=== PATIENT | male | born 1935 | race Caucasian/White ===

== ENCOUNTER → 2016-05-07 | Outpatient (CLI) | payer OTHER ==
[~2016-05-07] MED LIST: AMIO200T4 PO; ATOR10TA88 PO; CIPR1TAB11 PO; CLC/300 PO; CRD200 PO; GLC5 PO; LEVO75TA5 PO; LISI-790 PO; LSX40 PO; METF-383 PO; METO50TA7 PO; TPRSR/25 PO; XLTOPS OPB
--- NOTE | 2016-05-08 06:13 | PAP/PSG TECHNICIAN REPORT ---
[facility] Market Risk Analyst Polysomnogram Report Study name: None Report date: 05/08/2016 Study date: 05/07/2016 Referring Physician: Sandy Munoz M.D. Name: VANDANA DOMINGUEZ Interpreting Physician: Rubén Munoz M.D. Date of : 1935 Market Risk Analyst: Marti Kraft [facility]. Sex: Male Age: 80 StudyType: PSG Weight: 286 lbs Height: 80 years, Height 5' 8" Neck Circum:18.75 inches BMI: 43.48 Medications: Vitamins, Levoxyl 25 mcg, Lasix 20 mg, Amlodarone 200 mg, Metoprolol 50 MG, Lisinopril 5 mg, Metformin 850 mg, Lipitor 10 mg Patient History 80 yr. old male here for a possible split night sleep study with ETC02. Patient complains of EDS, snoring and witnessed apneas. Patients Holland sleepiness scale score is 14/24. Parameters Monitored NPSG: E1-M2, E2-M1, Fp1-M2, Fp2-M1, F3-M2, F4-M2, F4-M1, C3-M2, C4-M2, C4-M1, O1-M2, O2-M2, O2-M1, T3-M2, T4-M1, P3-M2, P4-M1, CHIN1, CHIN2, HR, EKG, Legs, PFLOW, SNOR, FLOW, CFLOW, Tidal Volume, THOR, ABDO, SpO2, PLTH, CPRESS, ETCO2 Wave, ETCO2, pH Sleep Architecture Sleep Stages Time at Lights Off 10:45:46 PM STAGES Time (min.) TST (%) Time at Lights On 4:50:46 AM Wake 168.5 -- Total Recording Time (TRT) 364.50 min. N1 57.0 29 Total Sleep Period (TSP) 299.5 min. N2 134.5 69 Total Sleep Time (TST) 196.0min. N3 0.0 0 Awake Time 168.5 min. REM 4.5 2 Wake after Sleep Onset 150.5 min. Sleep Efficiency (SE) 54 % Sleep Onset Latency (ALFONSO) 18.5 min. Number of Stage 1 Shifts None Awakenings 41 Stage Changes 153 Number of REM periods 1 REM 4.5 2 REM Latency 52.0 min. NREM 191.5 98 Body Position Analysis Supine Right Left Side Prone Vertical Total Sleep Time (min.) 363.0 0.0 0.0 0.00 0.0 1.5 Total Sleep Time (%) 100% 0% 0% 0 0% N/A% Total Sleep Time REM (min.) 4.5 0.0 0.0 None 0.0 0.0 Total Sleep Time NREM (min.) 191.5 0.0 0.0 None 0.0 0.0 Intermittent Wake (min.) 167.0 0.0 0.0 None 0.0 1.5 Total Sleep Period (%) 100% None None None None None Arousals Myoclonus (PLM) * Events Count Index Events Count Index Spontaneous 8 2 Events Awake (PLMW) 72 25.6 Respiratory 28 11.6 Events Asleep w/ Arousal (PLMA) 1 0.3 PLM 1 0 Events Asleep w/o Arousal (PLMS) 54 16.5 Snoring 2 1 Total Asleep 55 16.8 Total 39 12 Total 127 21 Respiratory Analysis * CA OA MA CH H RERA Total Count 1 75 40 0 74 0 190 Index 0.3 23.0 12.2 0 22.7 0 58.2 Mean Duration 34.3 29.3 34.2 0.00 28.7 0.0 30.1 Longest Duration 34.3 53.7 50.2 0.00 50.2 0.0 54.1 Respiratory Event Summary Total Supine ~Supine Right Left Prone REM NREM Apneas Count 116 116 N/A N/A N/A N/A 3 113 Index 35.5 36 N/A N/A N/A N/A 40 35 Hypopneas (4% Desat) Count 74 74 N/A N/A N/A N/A 0 74 Index 22.7 22.7 N/A N/A N/A N/A 0.0 23.2 Apneas & All Hypopneas Count 190 190 N/A N/A N/A N/A 3 187 Index 58.2 58 N/A N/A N/A N/A 40.0 58.6 Respiratory Events (Us Administrative Law Judge+All Hyp+RERA) Count 190 190 N/A N/A N/A N/A 3 187 Index 58.2 58 N/A N/A N/A N/A 40.0 58.6 Respiratory Related Arousal Count 28 190 N/A N/A N/A N/A 0 38 Index 11.6 12 N/A N/A N/A N/A 0 12 Snoring Analysis Supine Right Left Prone REM NREM Total Snore duration 1.5 min Snores count 65 N/A N/A N/A 4 61 65 Snore mean duration 1.4 Sec Snores index 20 N/A N/A N/A 53.3 19.1 19.9 TST with snoring (%) 0.8% SpO2 Analysis Total REM NREM Awake <50% 0.0 min. 0.0 min. 0.0 min. 0.0 min. 51 - 60% 0.0 min. 0.0 min. 0.0 min. 0.0 min. 61 - 70% 0.0 min. 0.0 min. 0.0 min. 0.0 min. 71 - 80% 1.1 min. 0.0 min. 0.4 min. 0.7 min. 81 - 90% 79.6 min. 2.4 min. 54.9 min. 22.3 min. 91 - 100% 204.1 min. 0.8 min. 94.2 min. 109.1 min. Average 92 89 91 93 Minimum SpO2 75 86 77 75 Desaturation Event Index 21.1 26.7 25.7 16.0 # Desat. Events below 89% 72 2 51 19 Time(%) with Saturation below 89% 13.6 0.6 9.6 3.5 Time(min.) with Saturation below 89% 38.8 1.6 27.4 9.9 Heart Rate Analysis End Tidal CO2 Analysis Min (bpm) Max (bpm) Average (bpm) TSP (mins) % of TSP Awake 37 161 64 Above 55 mmHg 0.0 0.0 NREM 33 127 61 50-55 mmHg 0.9 0.5 REM 59 63 60 45-50 mmHg 2.7 1.4 Overall 33 127 61 40-45 mmHg 12.8 6.6 35-40 mmHg 27.2 13.9 30-35 mmHg 58.1 29.6 Average ETCO2 0.1 Supplemental O2 Values Minimum O2 level: None Value Start Time End Time Market Risk Analyst Comments Mr. Dominguez qualified for a split night sleep study but refused CPAP. He said he could not do it. Both nasal and full face masks were tried. At 4:45 am, Mr. Dominguez stated that he needed to sit up to be able to breathe, and this is the time he moves to his recliner at home to breathe better. Mr. Dominguez slept in the supine position. Cardiac arrhythmias noted all night. No bruxism noted. Snoring was noted and scored as a 2 on a scale of 0 through 5. (0=no snoring, 5=snoring loud enough to be heard through a closed door or down the pimentel way) Mr. Dominguez awoke to use the restroom once during the night. Mr. Dominguez stated, that was a normal night. The final report will be interpreted and signed by a sleep physician. The completed physician report will then be placed in the patient medical record. Therapy (cm H2O) 0 TIB (min.) 364.5 TST (min.) 196.0 Sleep Onset (min.) 18.5 REM Onset From Sleep (min.) 52.0 Sleep Efficiency % 54 Wakefulness (%) 46 Wakefulness (min.) 168.5 NREM 1 (%) 29 NREM 1 (min.) 57.0 NREM 2 (%) 69 NREM 2 (min.) 134.5 NREM 3 (%) 0 NREM 3 (min.) 0.0 REM (%) 2 REM (min.) 4.5 # Arousals 39 Arousal Index 12 # Snore 65 Snore Index 19.9 AHI 58.2 AHI Supine 58 AHI Non-Supine N/A NREM AHI 58.6 REM AHI 40.0 RDI 58.2 # Obstructive Apnea 75 # Central Apnea 1 # Mixed Apnea 40 # Hypopneas 74 RERAs 0 Total Respiratory Events 230 Time Below SpO2 89% (min.) 29.0 Mean NREM SpO2 (%) 91 Mean REM SpO2 (%) 89 Mean Sleep SpO2 (%) 91 Min NREM SpO2 (%) 77 Min REM SpO2 (%) 86 Position Supine (min.) 363.0 Position Non-supine (min.) 0.0 LM Index Sleep 16.8 LM Index NREM 16.9 LM Index REM 13.3 Mean Heart Rate (bpm) 61 Min Heart Rate (bpm) 33
--- NOTE | 2016-05-11 00:04 | POLYSOMNOGRAPH REPORT ---
REFERRING PERSON: Dr. Viktoria Munoz. MILL OPERATOR HEAD: Marti Kraft. Mr. Way is an 80-year-old male sent for a possible split night sleep study. He complains of excessive daytime sleepiness, snoring, and witnessed apneas. His Maurice Sleepiness Scale score on the evening of this study is 14. BMI 43.48. Following the technical and digital specifications of the [place] [employer] (AASM) a standard diagnostic polysomnogram was performed monitoring EEG, EOG, EMG (chin and leg deviations), oxygen saturation, body position, digital video, respiratory effort and airflow. The sleep Stage and event scoring was based on the AASM Manual for the Scoring of Sleep and Associated Events 2007 edition. Apneas are defined as a drop in the peak thermal sensor excursion by >90% of baseline for at least 10 seconds. Hypopneas were scored using the 4% oxygen desaturation rule (4A-Medicare) and a decrease in the nasal pressure excursions by >30% of baseline for at least 10 seconds. Respiratory effort-related arousal (RERA's) is defined as a sequence of breaths lasting at least 10 seconds characterized by increasing respiratory effort or flattening of the nasal pressure waveform leading to an arousal from sleep when the sequence of breaths does not meet criteria for an apnea or hypopnea. Apnea Hypopnea index (AHI) is defined as the number of apneas and hypopneas occurring in an hour of sleep. Respiratory disturbance index (RDI) is defined as the number of apneas, hypopneas, and RERA's occurring in an hour of sleep. Mr. Carreras total sleep period time was 299.5 minutes. Total sleep time was 196 minutes. Sleep efficiency was only 54%. Latency to sleep onset was 18.5 minutes with wake after sleep onset of 150.5 minutes. Total non-REM sleep time was 191.5 minutes. He spent 29% of the sleep time in N1 sleep, 69% in N2 sleep and no time in N3 sleep. This is abnormal non-REM sleep architecture with a propensity for superficial sleep. REM latency was short at 52 minutes. Total REM sleep time was 4.5 minutes or 2% of total sleep time. There were 39 cortical arousals from sleep. Eight of these arousals were spontaneous, 28 were due to respiratory events, 1 due to periodic limb movements of sleep and 2 were due to snoring. There were 55 periodic limb movements noted on this test. Limb movement index was 16.8. Limb movement with arousal index was 0.3. On this sleep study, Mr. Way had 1 central, 75 obstructive and 40 mixed apneas. Additionally, there were 74 hypopneas. Apnea-hypopnea index was 58.2, consistent with severe sleep apnea. This patient was not split due to his sleep efficiency and wake after sleep onset. There were 65 snoring events recorded. Total sleep time with snoring was 0.8%. Mean saturation was 92% with desaturations to 75% during sleep. Saturations were less than 89% for 38.8 minutes of sleep time. This patient appeared to be in trigeminy during this study. Heart rates ranged from a low of 33 beats per minute to a high of 127 beats per minute. Although end-tidal CO2 was ordered, this data was incomplete. Per the technologist's note, he actually was tried on CPAP therapy; however, he stated he could not do it. Both nasal and full facemask were offered. IMPRESSION AND PLAN: An 80-year-old male with evidence of severe sleep apnea and significant nocturnal hypoxemia on this sleep study. Additionally, his heart rate monitoring and telemetry suggested trigeminy. 1. This patient would likely benefit from positive airway pressure therapy. He may benefit from a Pap nap in order to acclimate to therapy and then return to sleep after a full night titration. This will likely improve his hypoxemia as well as his apnea. 2. Should this patient be unwilling or unable to tolerate CPAP therapy, I would recommend he be started on oxygen therapy and then referred to ear, nose and throat or oral surgery/dental medicine to discuss alternative treatments for sleep disordered breathing.
== END | disposition home or self-care (01) ==
LOC: C.NEUR 20:00
PROVIDERS: ATTEND Family Medicine
DX: R06.83 Snoring (principal); G47.30 Sleep apnea, unspecified; E66.01 Morbid (severe) obesity due to excess calories; R09.02 Hypoxemia

== ENCOUNTER 2016-11-20 14:52 | Emergency (ER) | payer OTHER ==
[~2016-11-20] VITALS: Ht 177.8 cm; Wt 128.0 kg
[~2016-11-20 14:52] MED LIST changes: -AMIO200T4 PO; -CIPR1TAB11 PO; -CLC/300 PO; -GLC5 PO; -LEVO75TA5 PO; -LSX40 PO; -METO50TA7 PO; -TPRSR/25 PO
[2016-11-20 15:02] VITALS: TEMP 36.9; Ht 177.8 cm; Wt 128.0 kg
--- NOTE | 2016-11-20 15:23 | EMERGENCY ROOM VISIT NOTE ---
History Report prepared by Mustapha: Juan Carlos Castano Under the Supervision of: Dr. Valerio Gonzalez M.D. First contact with patient: 15:05 Chief Complaint: ABNORMAL LABS Stated Complaint: SENT BY DR OFFICE, ABNORMAL LABS, HIGH POTASSIUM History of Present Illness The patient is a 81 year old male who presents to the Emergency Room because of abnormal labs that were taken this morning. The patient states that he had high potassium this morning. The patient denies any chest pain or shortness of breath. Additionally, the patient states that his legs are always wrapped, and he has been urinating fine. The patient additionally just changed his medications from metformin to glipizide. Source of History: patient Onset: this morning Position: other (global) Quality: other (abnormal labs) Associated Symptoms: No chest pain, No SOB Review of Systems See HPI for pertinent positives & negatives. A total of 10 systems reviewed and were otherwise negative. Past Medical & Surgical Medical Problems: (1) Benign hypertension (2) Diabetes mellitus (3) Hypercholesterolemia (4) Knee pain (5) Ventricular tachycardia seen on satellite project site monitor Family History Diabetes mellitus FHx: cancer Social History Smoking Status: Never Smoker Alcohol Use: none Drug Use: none Marital Status: Housing Status: lives with family Occupation Status: retired Current/Historical Medications Scheduled Amiodarone Hcl (Cordarone), 200 MG PO DAILY Atorvastatin (Lipitor), 10 MG PO DAILY Furosemide (Furosemide), 40 MG PO MWF Glipizide (Glipizide), 5 MG PO DAILY Latanoprost (Latanoprost), 1 DROP OPB HS Levothyroxine Sodium (Levothyroxine Sodium), 75 MCG PO QAM Lisinopril (Zestril), 5 MG PO DAILY Metoprolol Succinate (Metoprolol Succinate ER), 25 MG PO DAILY Allergies Coded Allergies: Azithromycin (Unverified Allergy, Unknown, LIGHTHEADED, 11/20/16) IS UNSURE IF THIS IS THE ALLERGY FOR SURE. Physical Exam Vital Signs Date Time Temp Pulse Resp B/P (MAP) Pulse Ox O2 Delivery O2 Flow Rate FiO2 11/20/16 16:58 72 20 157/83 95 Room Air 11/20/16 15:02 36.9 73 22 193/85 92 Room Air Physical Exam GENERAL: Patient is well appearing and in no acute distress. Overweight. HEENT: No acute trauma, normocephalic atraumatic, mucous membranes moist, no nasal congestion, no scleral icterus. NECK: No stridor, no adenopathy, no meningismus, trachea is midline. LUNGS: No dyspnea. Clear to auscultation and equal bilaterally. No wheeze, no rhonchi. HEART: Regular rate and rhythm. No murmurs, rubs, gallops appreciated. ABDOMEN: Soft, nontender, bowel sounds positive, no masses appreciated, no peritonitis. BACK: No midline tenderness, no CVA tenderness EXTREMITIES: Wrappings on bilateral legs due to chronic edema. Normal motion all extremities and no cyanosis. NEUROLOGIC: Alert and oriented, no acute motor or sensory deficits, no focal weakness, cranial nerves grossly intact. SKIN: No rash, no jaundice, no diaphoresis. Medical Decision & Procedures Laboratory Results 11/20/16 15:20 Red Blood Count 4.18, Mean Corpuscular Volume 87.1, Mean Corpuscular Hemoglobin 28.5, Mean Corpuscular Hemoglobin Concent 32.7, Mean Platelet Volume 10.0, Neutrophils (%) (Auto) 56.0, Lymphocytes (%) (Auto) 31.0, Monocytes (%) (Auto) 8.2, Eosinophils (%) (Auto) 4.4, Basophils (%) (Auto) 0.2, Neutrophils # (Auto) 3.55, Lymphocytes # (Auto) 1.96, Monocytes # (Auto) 0.52, Eosinophils # (Auto) 0.28, Basophils # (Auto) 0.01 11/20/16 15:20 Test 11/20/16 15:20 White Blood Count 6.33 K/uL (4.8-10.8) Red Blood Count 4.18 M/uL (4.7-6.1) Hemoglobin 11.9 g/dL (14.0-18.0) Hematocrit 36.4 % (42-52) Mean Corpuscular Volume 87.1 fL (80-100) Mean Corpuscular Hemoglobin 28.5 pg (25-34) Mean Corpuscular Hemoglobin Concent 32.7 g/dl (32-36) Platelet Count 182 K/uL (130-400) Mean Platelet Volume 10.0 fL (7.4-10.4) Neutrophils (%) (Auto) 56.0 % Lymphocytes (%) (Auto) 31.0 % Monocytes (%) (Auto) 8.2 % Eosinophils (%) (Auto) 4.4 % Basophils (%) (Auto) 0.2 % Neutrophils # (Auto) 3.55 K/uL (1.4-6.5) Lymphocytes # (Auto) 1.96 K/uL (1.2-3.4) Monocytes # (Auto) 0.52 K/uL (0.11-0.59) Eosinophils # (Auto) 0.28 K/uL (0-0.5) Basophils # (Auto) 0.01 K/uL (0-0.2) RDW Standard Deviation 47.1 fL (36.4-46.3) RDW Coefficient of Variation 14.7 % (11.5-14.5) Immature Granulocyte % (Auto) 0.2 % Immature Granulocyte # (Auto) 0.01 K/uL (0.00-0.02) Anion Gap 6.0 mmol/L (3-11) Est Creatinine Clear Calc Drug Dose 32.4 ml/min Estimated GFR () 28.3 Estimated GFR (Non- 24.4 BUN/Creatinine Ratio 14.9 (10-20) Calcium Level 8.5 mg/dl (8.5-10.1) Magnesium Level 2.4 mg/dl (1.8-2.4) Laboratory results as reviewed by me. ED Course 1505: The patient was evaluated in room B5. A complete history and physical exam was performed. 1556: I reevaluated the patient, and he feels fine. The patient is aware that his kidney function is poor, and he is going to follow up with oncology next month. His potassium was 5.6 as an outpatient yesterday, and the creatinine was 2.3, but 4.7 today. His baseline creatinine is 2 and his potassium is 4.7 1638: I reassessed the patient, and he states that he still wants to go home. The patient understands the instructions, and he will be discharged home. Medical Decision 81 yr old male sent over from clinic for evaluation of hyperK. Repeat labs here reveal K 4.7. He does appear to have gradually worsening renal function. He is on Glipizide and Lisinopril thus I stressed importance of PCP follow up. he states he feels fine and that he is going home. No evidence of need for admission, obs, dialysis, acute change in meds at this time as he will follow up with PCP in next few days. I discussed case with nurse from PCP office and requested PCP review findings and his medications, along with his hypertension. I did discuss case with Dr Hollins of Nephro who agree with continued outpatient monitoring and notes pt with nephro appoint towards end Nov which seems reasonable. Pt aware RTED at any time if worsening or other concerns. Medication Reconcilliation Current Medication List: was personally reviewed by me Blood Pressure Screening Patient's blood pressure: Elevated blood pressure Blood pressure disposition: Referred to PCP Impression Primary Impression: Acute on chronic renal insufficiency Scribe Attestation The scribe's documentation has been prepared under my direction and personally reviewed by me in its entirety. I confirm that the note above accurately reflects all work, treatment, procedures, and medical decision making performed by me. Departure Information Dispostion Home / Self-Care Referrals Yarelis Hinds D.O. (PCP) Forms HOME CARE DOCUMENTATION FORM, IMPORTANT VISIT INFORMATION, WORK / SCHOOL INSTRUCTIONS Patient Instructions My [facility] Additional Instructions Please follow up with your Primary Provider early next week to discuss your elevation in kidney function, your hypertension and the fact you are on several medications that can cause issues in setting of renal problems. Return immediately if worsening of symptoms or other concerns. We are always here to help.
[2016-11-20] MEDS ORDERED: TPRSR/25 PO (15:25)
[2016-11-20] MEDS ORDERED: AMIO200T4 PO (15:26)
[2016-11-20] MEDS ORDERED: LEVO75TA5 PO (15:26)
[2016-11-20] MEDS ORDERED: GLC5 PO (15:26)
[2016-11-20] MEDS ORDERED: LSX40 PO (15:27)
[2016-11-20 15:30] LABS: BASO % 0.2 %; BASO ABS # 0.01 K/uL (0-0.2); COMPLETE YES; EOS % 4.4 %; HEMATOCRIT 36.4 % (42-52); IG% 0.2 %; LYMPH ABS # 1.96 K/uL (1.2-3.4); MEAN CELL VOLUME 87.1 fL (80-100); MEAN CORPUSCULAR HEMOGLOBIN 28.5 pg (25-34); MEAN CORPUSCULAR HGB CONC 32.7 g/dl (32-36); MONO % 8.2 %; PLATELET COUNT 182 K/uL (130-400); RED BLOOD COUNT 4.18 M/uL (4.7-6.1); WHITE BLOOD COUNT 6.33 K/uL (4.8-10.8)
[2016-11-20 15:46] LABS: BUN/CREATININE RATIO 14.9 (10-20); CALCIUM 8.5 mg/dl (8.5-10.1); CREATININE 2.4 mg/dl (0.60-1.40); MAGNESIUM 2.4 mg/dl (1.8-2.4); POTASSIUM 4.7 mmol/L (3.5-5.1)
[2016-11-20 16:58] VITALS: BP 157/83; PULSE 72; O2SAT 95
[2016-12-25] MEDS ORDERED: CLC/300 PO (10:19)
[2017-01-11] MEDS ORDERED: CIPR1TAB11 PO (13:50)
== END 2016-11-20 17:11 | disposition home or self-care (01) ==
LOC: C.EDB 14:54
DX: N18.9 Chronic kidney disease, unspecified (principal); R79.9 Abnormal finding of blood chemistry, unspecified; I10 Essential (primary) hypertension; E78.00 Pure hypercholesterolemia, unspecified; Z83.3 Family history of diabetes mellitus

== ENCOUNTER 2017-03-08 11:19 | Inpatient (IN) | payer OTHER ==
[~2017-03-08] VITALS: Ht 182.9 cm; Wt 125.0 kg
[~2017-03-08 11:19] MED LIST changes: +AMIO200T4 PO; +ATOR10TA82 PO; -ATOR10TA88 PO; -CRD200 PO; +LEVO75TA5 PO; -LISI-790 PO; +LSX40 PO; -METF-383 PO; +TPRSR/25 PO
[2017-03-08] MEDS ORDERED: CHOL2000 PO (11:42)
[2017-03-08] MEDS ORDERED: CLINDAMYCIN 600 MG/54 ML D5W IV ONE (12:15)
--- NOTE | 2017-03-08 12:27 | EMERGENCY ROOM VISIT NOTE ---
History Report prepared by Mustapha: Vineet Kaufman Under the Supervision of: Dr. Rafat Suarez M.D. First contact with patient: 12:02 Chief Complaint: WOUND INFECTION Stated Complaint: OPEN SORES ON LEGS Nursing Triage Summary: Pt presents with c/o cellulitis and lymphedema to right upper leg. Pt states finished oral abx with no relief. Pt is diabetic. Appt at the wound care clinic on Wed. History of Present Illness The patient is a 81 year old male who presents to the Emergency Room with complaints of a worsening infection to his right oneill that began two days ago. He is following up with the Wound Clinic and finished a course of antibiotics a couple of days ago. He saw the Wound Clinic 6 days ago, saying that his wound had healed over and looked well. He then began using compression devices on his legs the next day. His leg began to look infected again two days ago. He denies any blood thinners. He notes that this morning, the patient was in the shower and noticed that both of his legs turned purple. He denies any fevers, cough, congestion, chills, chest pain, shortness of breath, abdominal pain, nausea, vomiting, or diarrhea. Source of History: patient Onset: two days ago Position: leg Symptom Intensity: moderate Quality: other (Possible infection) Timing: worsening Associated Symptoms: No fevers, No chills, No cough, No chest pain, No SOB, No nausea, No vomiting, No abdominal pain, No diarrhea Note: He notes that his legs turned purple while in the shower this morning. Review of Systems See HPI for pertinent positives and negatives. A total of ten systems were reviewed and were otherwise negative. 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 Surgical Problems: (1) History of hip surgery Family History Diabetes mellitus FHx: cancer Social History Smoking Status: Former Smoker Alcohol Use: none Drug Use: none Marital Status: Housing Status: lives with family Occupation Status: retired Current/Historical Medications Scheduled Amiodarone Hcl (Cordarone), 200 MG PO DAILY Atorvastatin (Lipitor), 10 MG PO DAILY Cholecalciferol (Vitamin D3), 2,000 INTER.UNIT PO DAILY Furosemide (Furosemide), 40 MG PO DAILY Latanoprost (Xalatan 0.005% Oph Carine), 1 DROPS OPB HS Levothyroxine Sodium (Levothyroxine Sodium), 75 MCG PO QAM Metoprolol Succinate (Metoprolol Succinate ER), 50 MG PO DAILY Allergies Coded Allergies: Azithromycin (Unverified Allergy, Unknown, LIGHTHEADED, 03/08/17) IS UNSURE IF THIS IS THE ALLERGY FOR SURE. Physical Exam Vital Signs Date Time Temp Pulse Resp B/P (MAP) Pulse Ox O2 Delivery O2 Flow Rate FiO2 03/08/17 16:58 54 184/62 95 Room Air 03/08/17 15:12 55 140/89 97 Room Air 03/08/17 13:20 57 20 149/70 97 Room Air 03/08/17 11:24 36.8 60 18 147/68 95 Room Air Physical Exam GENERAL: Awake, alert, well-appearing, in no distress HENT: Normocephalic, atraumatic. Oropharynx unremarkable. EYES: Normal conjunctiva. Sclera non-icteric. NECK: Supple. No nuchal rigidity. FROM. No JVD. RESPIRATORY: Clear to auscultation. CARDIAC: Regular rate, normal rhythm. Extremities warm and well perfused. Pulses equal. ABDOMEN: Soft, non-distended. No tenderness to palpation. No rebound or guarding. No masses. RECTAL: Deferred. MUSCULOSKELETAL: Chest examination reveals no tenderness. The back is symmetrical on inspection without obvious abnormality. There is no CVA tenderness to palpation. No joint edema. LOWER EXTREMITIES: There is an erythematous and excoriated area within 10 cm's to the right anterior lower leg with isolated vesicles. The left anterior lower leg has erythematous patches with a smaller area of excoriation without blistering. No warmth or crepitus. Distally, the patient's feet are warm with diminished pulses. NEURO: Normal sensorium. No sensory or motor deficits noted. SKIN: No rash or jaundice noted. Medical Decision & Procedures ER Provider Diagnostic Interpretation: Radiology results as stated below per my review and radiologist interpretation: VENOUS DOPPLER LWR EXT BILA CLINICAL HISTORY: 81 years-old Male presenting with transient BLE cyanosis. TECHNIQUE: Real-time grayscale and color and spectral Doppler ultrasound imaging of the veins of the bilateral lower extremities was performed. Compression and augmentation were also utilized. COMPARISON: None. FINDINGS: Right: Common femoral vein: Patent. Femoral vein: Patent. Greater saphenous vein: Patent. Popliteal vein: Patent. Calf veins: Limited visualization. Left: Common femoral vein: Patent. Femoral vein: Patent. Greater saphenous vein: Patent. Popliteal vein: Patent. Calf veins: Limited visualization. Other: Left popliteal cysts noted. IMPRESSION: No evidence of deep venous thrombosis. Electronically signed by: Eliecer Andre M.D. 03/08/2017 3:20 PM Dictated Date/Time: 03/08/2017 3:18 PMn R TIBIA/FIBULA 2 VIEWS ROUTINE CLINICAL HISTORY: Cellulitis, diabetic COMPARISON: None. DISCUSSION: There are mild osteoarthritic changes present within the knee. No acute fractures are visualized. There are no erosive or destructive changes. IMPRESSION: 1. No evidence of fracture 2. No evidence of osteomyelitis. Electronically signed by: Jose Triplett M.D. 03/08/2017 1:21 PM Dictated Date/Time: 03/08/2017 1:20 PM ART DOP LOWER EXT BILAT HISTORY: 81 years-old Male transient BLE cyanosis acute cyanosis of the bilateral lower extremities COMPARISON: None available TECHNIQUE: Multiple real-time sonographic images of the bilateral lower extremity arterial structures were obtained assessing grayscale appearance, color and spectral flow. Digit waveforms were also obtained. ABIs were not obtained secondary to open wounds. FINDINGS: RIGHT: Triphasic waveforms are noted within the common femoral, profunda femoris, superficial femoral and popliteal arteries. Blunted biphasic waveforms of the peroneal, anterior tibial and dorsalis pedis arteries. Atherosclerosis noted. Elevated peak systolic velocity of 440.6 cm/s noted within the posterior tibial artery with triphasic waveforms suggesting high-grade stenosis. LEFT: Triphasic waveforms are noted within the common femoral, profunda femoris, and superficial femoral arteries. Blunted biphasic waveforms are seen within the popliteal artery. Blunted monophasic waveforms of the posterior tibial, anterior tibial and peroneal arteries. Elevated peak systolic velocity 152 cm/s noted within the peroneal artery. Reversed flow within the dorsalis pedis artery with peak systolic velocity of 20 cm/s. IMPRESSION: 1. Elevated peak systolic velocity of 440.6 cm/s within the right posterior tibial artery suggests high-grade stenosis. 2. Mildly elevated peak systolic velocity of the left peroneal artery also suggests stenosis. 3. Reversed flow within the left dorsalis pedis artery suggests high-grade stenosis. 4. Waveforms above the level of the knees appear to be within normal limits as above. The above report was generated using voice recognition software. It may contain grammatical, syntax or spelling errors. Electronically signed by: Da Santacruz M.D. 03/08/2017 3:29 PM Dictated Date/Time: 03/08/2017 3:24 PM Laboratory Results 03/08/17 12:45 Red Blood Count 4.22, Mean Corpuscular Volume 88.6, Mean Corpuscular Hemoglobin 27.7, Mean Corpuscular Hemoglobin Concent 31.3, Mean Platelet Volume 10.8, Neutrophils (%) (Auto) 63.4, Lymphocytes (%) (Auto) 20.9, Monocytes (%) (Auto) 8.8, Eosinophils (%) (Auto) 6.8, Basophils (%) (Auto) 0.1, Neutrophils # (Auto) 4.66, Lymphocytes # (Auto) 1.54, Monocytes # (Auto) 0.65, Eosinophils # (Auto) 0.50, Basophils # (Auto) 0.01 03/08/17 12:45 Test 03/08/17 12:45 White Blood Count 7.36 K/uL (4.8-10.8) Red Blood Count 4.22 M/uL (4.7-6.1) Hemoglobin 11.7 g/dL (14.0-18.0) Hematocrit 37.4 % (42-52) Mean Corpuscular Volume 88.6 fL (80-100) Mean Corpuscular Hemoglobin 27.7 pg (25-34) Mean Corpuscular Hemoglobin Concent 31.3 g/dl (32-36) Platelet Count 173 K/uL (130-400) Mean Platelet Volume 10.8 fL (7.4-10.4) Neutrophils (%) (Auto) 63.4 % Lymphocytes (%) (Auto) 20.9 % Monocytes (%) (Auto) 8.8 % Eosinophils (%) (Auto) 6.8 % Basophils (%) (Auto) 0.1 % Neutrophils # (Auto) 4.66 K/uL (1.4-6.5) Lymphocytes # (Auto) 1.54 K/uL (1.2-3.4) Monocytes # (Auto) 0.65 K/uL (0.11-0.59) Eosinophils # (Auto) 0.50 K/uL (0-0.5) Basophils # (Auto) 0.01 K/uL (0-0.2) RDW Standard Deviation 45.0 fL (36.4-46.3) RDW Coefficient of Variation 14.0 % (11.5-14.5) Immature Granulocyte % (Auto) 0.0 % Immature Granulocyte # (Auto) 0.00 K/uL (0.00-0.02) Anion Gap 10.0 mmol/L (3-11) Est Creatinine Clear Calc Drug Dose 32.6 ml/min Estimated GFR () 27.8 Estimated GFR (Non- 24.0 BUN/Creatinine Ratio 16.9 (10-20) Calcium Level 8.7 mg/dl (8.5-10.1) Thyroid Stimulating Hormone (TSH) 2.330 uIu/ml (0.300-4.500) Laboratory results reviewed by me Medications Administered Medications (Trade) Dose Ordered Sig/Suraj Route Start Time Stop Time Status Last Admin Dose Admin Clindamycin Phosphate (Cleocin 600mg/ 54ml D5W) 600 mg ONE ONCE IV 03/08/17 12:15 03/08/17 12:16 DC 03/08/17 13:26 600 MG ED Course 1202: The patient was evaluated in room A10. A complete history and physical exam was performed. 1215: Ordered Clindamycin Phosphate 600 mg IV 1637: Upon reexamination, the patient was resting. I discussed the test results and treatment plan with him. I spoke with Araceli Cisneros PA-C of [employer]. The patient will be evaluated by her for further management. Medical Decision I reviewed the patient's past medical history, medications, and the nursing notes as described above. Differential diagnosis includes but is not limited to: cellulitis, venous insufficiency, arterial insufficiency, and osteomyelitis. The patient is an 81-year-old gentleman with a past medical history of diabetes as well as recurrent lower extremity cellulitis who presents emergency Department with return of cellulitis despite recent completion of outpatient antibiotics 2 days prior to arrival per history of present illness. Additionally the patient reports a transient episode of cyanosis underlying his bilateral lower extremity cellulitis. Exam patient has scaly erythematous patches on his anterior lower legs with right lower extremity worse and with isolated vesicles. No crepitus or induration. Patient had negative venous duplex. However did have severe arterial insufficiency/stenosis. Patient does have a left dopplerable monophasic DP, and right monophasic PT. Otherwise, other pedal pulses not dopplerable. Patient's feet are chronically cool but not cold and this is unchanged per patient. Moreover, patient denies any symptoms of claudication such as resting or exertional leg paing. His cap refill is slightly delayed but does perfuse. Given patient's arterial insufficiency likely precipitating his recurrent cellulitis will admit the patient for IV antibiotics and likely vascular consultation. Will defer question of possible anticoagulation to admitting team upon vascular consult given patient does have distal perfusion at this time. Unable to obtain CTA at this time given the patient's CKD. Case was discussed with Ramya Bhakta PA-C who will admit the patient for further management. Medication Reconcilliation Current Medication List: was personally reviewed by me Blood Pressure Screening Patient's blood pressure: Elevated blood pressure Will be addressed as an inpatient. Consults Time Called: 1635 Consulting Physician: Araceli Cisneros PA-C - [facility] Hospitalist Returned Call: [phone] I discussed the patient with her - She will evaluate the patient for further treatment. Impression Primary Impression: Cellulitis Additional Impression: Arterial insufficiency of lower extremity Scribe Attestation The scribe's documentation has been prepared under my direction and personally reviewed by me in its entirety. I confirm that the note above accurately reflects all work, treatment, procedures, and medical decision making performed by me. Departure Information Dispostion Being Evaluated By Hospitalist Referrals Yarelis Hinds D.O. (PCP) Patient Instructions My [facility] Problem Qualifiers Primary Impression: Cellulitis Site of cellulitis: extremity Site of cellulitis of extremity: lower extremity Laterality: right Qualified Codes: L03.115 - Cellulitis of right lower limb
--- NOTE | 2017-03-08 13:22 | DIAGNOSTIC IMAGING REPORT ---
R TIBIA/FIBULA 2 VIEWS ROUTINE CLINICAL HISTORY: Cellulitis, diabetic COMPARISON: None. DISCUSSION: There are mild osteoarthritic changes present within the knee. No acute fractures are visualized. There are no erosive or destructive changes. IMPRESSION: 1. No evidence of fracture 2. No evidence of osteomyelitis. Electronically signed by: Jose Triplett M.D. 03/08/2017 1:21 PM Dictated Date/Time: 03/08/2017 1:20 PM
[2017-03-08 13:25] LABS: BASO % 0.1 %; BASO ABS # 0.01 K/uL (0-0.2); COMPLETE YES; EOS % 6.8 %; HEMATOCRIT 37.4 % (42-52); LYMPH % 20.9 %; LYMPH ABS # 1.54 K/uL (1.2-3.4); MEAN CELL VOLUME 88.6 fL (80-100); MEAN CORPUSCULAR HEMOGLOBIN 27.7 pg (25-34); MEAN CORPUSCULAR HGB CONC 31.3 g/dl (32-36); MEAN PLATELET VOLUME 10.8 fL (7.4-10.4); MONO % 8.8 %; NEUT % 63.4 %; PLATELET COUNT 173 K/uL (130-400); RED BLOOD COUNT 4.22 M/uL (4.7-6.1); WHITE BLOOD COUNT 7.36 K/uL (4.8-10.8)
[2017-03-08 13:38] LABS: BUN/CREATININE RATIO 16.9 (10-20); CALCIUM 8.7 mg/dl (8.5-10.1); CREATININE 2.43 mg/dl (0.60-1.40); POTASSIUM 4.3 mmol/L (3.5-5.1)
--- NOTE | 2017-03-08 15:21 | DIAGNOSTIC IMAGING REPORT ---
VENOUS DOPPLER LWR EXT BILA CLINICAL HISTORY: 81 years-old Male presenting with transient BLE cyanosis. TECHNIQUE: Real-time grayscale and color and spectral Doppler ultrasound imaging of the veins of the bilateral lower extremities was performed. Compression and augmentation were also utilized. COMPARISON: None. FINDINGS: Right: Common femoral vein: Patent. Femoral vein: Patent. Greater saphenous vein: Patent. Popliteal vein: Patent. Calf veins: Limited visualization. Left: Common femoral vein: Patent. Femoral vein: Patent. Greater saphenous vein: Patent. Popliteal vein: Patent. Calf veins: Limited visualization. Other: Left popliteal cysts noted. IMPRESSION: No evidence of deep venous thrombosis. Electronically signed by: Eliecer Andre M.D. 03/08/2017 3:20 PM Dictated Date/Time: 03/08/2017 3:18 PMn
--- NOTE | 2017-03-08 15:31 | DIAGNOSTIC IMAGING REPORT ---
ART DOP LOWER EXT BILAT HISTORY: 81 years-old Male transient BLE cyanosis acute cyanosis of the bilateral lower extremities COMPARISON: None available TECHNIQUE: Multiple real-time sonographic images of the bilateral lower extremity arterial structures were obtained assessing grayscale appearance, color and spectral flow. Digit waveforms were also obtained. ABIs were not obtained secondary to open wounds. FINDINGS: RIGHT: Triphasic waveforms are noted within the common femoral, profunda femoris, superficial femoral and popliteal arteries. Blunted biphasic waveforms of the peroneal, anterior tibial and dorsalis pedis arteries. Atherosclerosis noted. Elevated peak systolic velocity of 440.6 cm/s noted within the posterior tibial artery with triphasic waveforms suggesting high-grade stenosis. LEFT: Triphasic waveforms are noted within the common femoral, profunda femoris, and superficial femoral arteries. Blunted biphasic waveforms are seen within the popliteal artery. Blunted monophasic waveforms of the posterior tibial, anterior tibial and peroneal arteries. Elevated peak systolic velocity 152 cm/s noted within the peroneal artery. Reversed flow within the dorsalis pedis artery with peak systolic velocity of 20 cm/s. IMPRESSION: 1. Elevated peak systolic velocity of 440.6 cm/s within the right posterior tibial artery suggests high-grade stenosis. 2. Mildly elevated peak systolic velocity of the left peroneal artery also suggests stenosis. 3. Reversed flow within the left dorsalis pedis artery suggests high-grade stenosis. 4. Waveforms above the level of the knees appear to be within normal limits as above. The above report was generated using voice recognition software. It may contain grammatical, syntax or spelling errors. Electronically signed by: Da Santacruz M.D. 03/08/2017 3:29 PM Dictated Date/Time: 03/08/2017 3:24 PM
[2017-03-08] MEDS ORDERED: ACETAMINOPHEN 325 MG TAB PO PRN (18:00)
[2017-03-08] MEDS ORDERED: ONDANSETRON INJ 2 MG/ML 2 ML VIAL IV PRN (18:00)
[2017-03-08] MEDS ORDERED: GLUCAGON FOR INJ 1 MG VIAL SQ PRN (18:15)
[2017-03-08] MEDS ORDERED: GLUCOSE 10 TABS/TUBE PO PRN (18:15)
[2017-03-08] MEDS ORDERED: GLUCOSE 40% GEL 15 GM TUBE PO PRN (18:15)
[2017-03-08] MEDS ORDERED: DEXTROSE 50% 50 ML SYR IV PRN (18:15)
[2017-03-08] MEDS ORDERED: LATA0.5S OPB (18:37)
--- NOTE | 2017-03-08 19:09 | History and Physical ---
History & Physical Date of Service Mar 08, 2017. History & Physical This is an 81 year old male with a PMH of ventricular ectopy, multiple PACs/ PVCs and a hx. of nonsustained V-tach, DM2, HTN, HLD, CKD stage IV, hypothyroidism - presents due to lower extremity wound - which has been present for about two years - he has been following with his PCP and wound care for bilateral lower extremity swelling and wounds. Has been intermittently on antibiotics for these two years. States that the wound has been getting worse, so he came in for evaluation. On arrival, venous and arterial dopplers were performed; no DVT found, but arterial stenosis found on the R LE. Denies all other symptoms. 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
[2017-03-08 20:10] VITALS: BP 199/79; PULSE 57; TEMP 36.8; O2SAT 94
[2017-03-08 20:12] VITALS: BP 180/87
[2017-03-08 20:16] VITALS: BMI 37.4
--- NOTE | 2017-03-08 20:59 | History and Physical ---
History & Physical Date & Time of Service: Mar 08, 2017 at 17:48 Chief Complaint: Open Sores On Legs Primary Care Physician: Yarelis Hinds D.O. History of Present Illness Source: patient, spouse Pt is 81 y/o M with PMH CKD stage IV, DM II, HTN, hypothyroidism, chronic NSVT presented to ER with c/o lower leg erythema. Pt reports for "2 years" bilateral LE wounds intermittently. States past couple of months has been having bilateral lower leg cellulitis and sores/ulcers and has been on several antibiotics and following with the wound clinic. Hx MSSA on wound culture 2016. States last seen by wound clinic one week ago and legs were healing well with ulcers healed and no significant erythema. Reports started using compression boots and then approx 2-3 days later noticed some redness to R anterior lower leg with worsening and open area past 2 days. C/O burning sensation to right lower anterior leg past 2 days also. Denies purulent drainage from area. C/O cold feet and today after getting out of the shower reports that bilateral lower legs were purple color which resolved after elevating legs. He reports hx decreased sensation to bilateral feet for years, denies paresthesias. Pt states on lasix for LE edema. Pt states not on meds for DM as was taken off oral because of his CKD. Hx ECHO 02/09 EF: 55%, Holter with frequent ventricular ectopy, 6 beat run NSVT. Denies any hx bleeding disorders or problems. Denies fever/chills, diaphoresis, N/V/D/C, SHEPARD, dizziness , syncope, vision changes, neck pain, CP, SOB, orthopnea, palpitations, cough, sore throat, choking, otalgia, rhinorrhea, abdominal pain, extremity weakness, extremity edema, urinary symptoms. Seen in ER and had negative xray R tib/fib. Venous doppler bilaterally was negative DVT. 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 No leukocytosis. H/H 11.7/37 (pt's baseline). BUN: 41, CR: 2.4, GFR 24 (baseline CR: 2.4, GFR: 23). Glucose 24. He was started on Clindamycin IV. Past Medical/Surgical History Medical Problems: (1) Arthritis Status: Chronic (2) Chronic kidney disease, stage 4 (severe) Status: Chronic (3) DM type 2 (diabetes mellitus, type 2) Status: Chronic (4) Esophageal reflux Status: Chronic (5) Frequent PVCs Status: Chronic (6) Glaucoma Status: Chronic (7) HTN (hypertension) Status: Chronic (8) Hx of varicose veins of lower extremity Status: Chronic (9) Hypercholesterolemia Status: Chronic (10) Hypothyroidism Status: Chronic (11) NSVT (nonsustained ventricular tachycardia) Status: Chronic Surgical Problems: (1) History of hip surgery Status: Resolved Family History Diabetes mellitus SISTER FH: CAD (coronary artery disease) MOTHER ("blood clot heart") Hypertension SISTER Social History Smoking Status: Former Smoker (smoked cigars, quit ) Smokeless Tobacco Use: No Alcohol Use: occasionally (1 beer once a year) Drug Use: none Marital Status: Housing status: lives with significant other Occupational Status: retired Multi-Drug Resistant Organisms History of MDRO: No Allergies Coded Allergies: Azithromycin (Unverified Allergy, Unknown, LIGHTHEADED, 03/08/17) IS UNSURE IF THIS IS THE ALLERGY FOR SURE. Home Medications Scheduled Amiodarone Hcl (Cordarone), 200 MG PO DAILY Atorvastatin (Lipitor), 10 MG PO DAILY Cholecalciferol (Vitamin D3), 2,000 INTER.UNIT PO DAILY Furosemide (Furosemide), 40 MG PO DAILY Latanoprost (Xalatan 0.005% Oph Carine), 1 DROPS OPB HS Levothyroxine Sodium (Levothyroxine Sodium), 75 MCG PO QAM Metoprolol Succinate (Metoprolol Succinate ER), 50 MG PO DAILY Review of Systems See HPI for pertinent positives & negatives. All other systems reviewed and were otherwise negative Physical Exam Vital Signs Date Time Temp Pulse Resp B/P (MAP) Pulse Ox O2 Delivery O2 Flow Rate FiO2 03/08/17 16:58 54 184/62 95 Room Air 03/08/17 15:12 55 140/89 97 Room Air 03/08/17 13:20 57 20 149/70 97 Room Air 03/08/17 11:24 36.8 60 18 147/68 95 Room Air General Appearance: no apparent distress, + obese Head: normocephalic, atraumatic Eyes: normal inspection, EOMI, sclerae normal ENT: pharynx normal, + pertinent finding (hard of hearing) Neck: supple, no JVD, trachea midline Respiratory/Chest: chest non-tender, lungs clear, normal breath sounds, no respiratory distress, no accessory muscle use Cardiovascular: regular rate, rhythm, + systolic murmur Abdomen/GI: normal bowel sounds, non tender, soft Extremities/Musculoskelatal: normal range of motion, + pertinent finding ( extremities warm. bilateral lower legs 1+ edema, left lower leg non-tender, venous stasis changes, right lower leg anterior with erythema with excoriation, mild tenderness to palpation, no purulent discharge, no red streaking. bilateral diminished pedal pulses. sensation to light touch intact.) Skin: warm/dry, + pertinent finding (see extremities. no other rashes noted) Diagnostics Laboratory Results Results Past 24 Hours Test 03/08/17 12:45 Range/Units White Blood Count 7.36 4.8-10.8 K/uL Red Blood Count 4.22 4.7-6.1 M/uL Hemoglobin 11.7 14.0-18.0 g/dL Hematocrit 37.4 42-52 % Mean Corpuscular Volume 88.6 80-100 fL Mean Corpuscular Hemoglobin 27.7 25-34 pg Mean Corpuscular Hemoglobin Concent 31.3 32-36 g/dl Platelet Count 173 130-400 K/uL Mean Platelet Volume 10.8 7.4-10.4 fL Neutrophils (%) (Auto) 63.4 % Lymphocytes (%) (Auto) 20.9 % Monocytes (%) (Auto) 8.8 % Eosinophils (%) (Auto) 6.8 % Basophils (%) (Auto) 0.1 % Neutrophils # (Auto) 4.66 1.4-6.5 K/uL Lymphocytes # (Auto) 1.54 1.2-3.4 K/uL Monocytes # (Auto) 0.65 0.11-0.59 K/uL Eosinophils # (Auto) 0.50 0-0.5 K/uL Basophils # (Auto) 0.01 0-0.2 K/uL RDW Standard Deviation 45.0 36.4-46.3 fL RDW Coefficient of Variation 14.0 11.5-14.5 % Immature Granulocyte % (Auto) 0.0 % Immature Granulocyte # (Auto) 0.00 0.00-0.02 K/uL Sodium Level 141 136-145 mmol/L Potassium Level 4.3 3.5-5.1 mmol/L Chloride Level 103 98-107 mmol/L Carbon Dioxide Level 28 21-32 mmol/L Anion Gap 10.0 3-11 mmol/L Blood Urea Nitrogen 41 7-18 mg/dl Creatinine 2.43 0.60-1.40 mg/dl Est Creatinine Clear Calc Drug Dose 32.6 ml/min Estimated GFR () 27.8 Estimated GFR (Non- 24.0 BUN/Creatinine Ratio 16.9 10-20 Random Glucose 219 70-99 mg/dl Calcium Level 8.7 8.5-10.1 mg/dl Diagnostic Radiology ARTERIAL DOPPLER BILATERAL LE: IMPRESSION: 1. Elevated peak systolic velocity of 440.6 cm/s within the right posterior tibial artery suggests high-grade stenosis. 2. Mildly elevated peak systolic velocity of the left peroneal artery also suggests stenosis. 3. Reversed flow within the left dorsalis pedis artery suggests high-grade stenosis. 4. Waveforms above the level of the knees appear to be within normal limits as above. VENOUS DOPPLER BILATERAL LE: IMPRESSION: No evidence of deep venous thrombosis R TIB/FIB XRAY: IMPRESSION: 1. No evidence of fracture 2. 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 Negative venous Doppler bilateral LE for DVT. negative R tib/fib xray -Add ASA -Increase Lipitor from 10mg to 20mg daily -Consult Vascular Surgery CELLULITIS/WOUND bilateral lower extremity erythema, worse to RLE. wound RLE. no active discharge. No leukocytosis and pt afebrile. pt with hx MSSA in past. -pending wound culture -Clindamycin -Consult Wound clinic -cbc in am DM II Pt not currently on meds -A1c added -NovoLog sliding scale HYPOTHYROIDISM -check TSH -continue levothyroxine CKD Stage 4 -Cr at baseline at 2.4 -avoid nephrotoxic agents -prp in am HTN/HX NSVT vitals stable at this time -continue amiodarone -continue metoprolol -continue lasix HYPERLIPIDEMIA -check fasting lipids -lipitor increased to 20mg daily DVT PROPHYLAXIS -heparin SQ DISPOSITION -admit med/surg -DNR as per discussion with pt and family -Follows with Dr Hinds for routine care Pt was seen with Dr Enrique. See addendum Level of Care Med/Surg Resuscitation Status DO NOT RESUSCITATE VTE Prophylaxis VTE Risk Assessment Done? Y/N: Yes Risk Level: Moderate Given or contraindicated: Unfractionated heparin SQ Additional Copies To Yarelis Hinds D.O.
[2017-03-08] MEDS ORDERED: INSULIN ASPART 100 UNITS/ML 3 ML PEN SC SCH (21:00)
[2017-03-08] MEDS ORDERED: HydrALAZINE HCL 20 MG/ML VIAL IV. PRN (22:00)
[2017-03-08 22:08] VITALS: BP 158/69; PULSE 57
[2017-03-08] MEDS: LATANOPROST 0.005% OP SOLN 2.5 ML BTL OPB SCH (22:10)
[2017-03-08] MEDS: CLINDAMYCIN IV 600 MG in DEXTROSE 5% 50ML 50 ML IV SCH (22:24)
[2017-03-08] MEDS ORDERED: NURSING VERBAL MED ORDER ONE (23:00)
[2017-03-08 23:08] VITALS: BP 171/74; PULSE 57; TEMP 37; O2SAT 94
[2017-03-09] VITALS (8 sets, daily range): BP systolic 118–184; BP diastolic 68–83; PULSE 56–65; TEMP 36.7–37.3; O2SAT 94–98
[2017-03-09] MEDS: INSULIN ASPART 100 UNITS/ML 3 ML PEN SC SCH ×5 (00:17→21:09)
[2017-03-09] MEDS: CLINDAMYCIN IV 600 MG in DEXTROSE 5% 50ML 50 ML IV SCH (03:55)
[2017-03-09 05:39] LABS: BASO % 0.1 %; BASO ABS # 0.01 K/uL (0-0.2); COMPLETE YES; EOS % 6.4 %; HEMATOCRIT 35.5 % (42-52); IG% 0.3 %; LYMPH ABS # 1.55 K/uL (1.2-3.4); MEAN CELL VOLUME 87.9 fL (80-100); MEAN CORPUSCULAR HEMOGLOBIN 27.7 pg (25-34); MEAN CORPUSCULAR HGB CONC 31.5 g/dl (32-36); MEAN PLATELET VOLUME 10.6 fL (7.4-10.4); MONO % 10.2 %; PLATELET COUNT 161 K/uL (130-400); RED BLOOD COUNT 4.04 M/uL (4.7-6.1); WHITE BLOOD COUNT 6.74 K/uL (4.8-10.8)
[2017-03-09 05:48] LABS: ESTIMATED AVERAGE GLUCOSE 174 mg/dl; HA1C FLAG Normal (Normal)
[2017-03-09 05:50] LABS: PROTHROMBIN TIME (PATIENT) 10.5 SECONDS (9.0-12.0)
[2017-03-09] MEDS: LEVOTHYROXINE 75 MCG TAB PO SCH (05:52)
[2017-03-09] MEDS ORDERED: HEPARIN SOD 5000 UNIT/0.5 ML CARP SQ SCH (06:00)
[2017-03-09 06:03] LABS: BUN/CREATININE RATIO 17.3 (10-20); CALCIUM 8.4 mg/dl (8.5-10.1); CREATININE 2.09 mg/dl (0.60-1.40); POTASSIUM 4.1 mmol/L (3.5-5.1)
[2017-03-09 06:06] LABS: CHOLESTEROL/HDL RATIO 3.7
[2017-03-09] MEDS ORDERED: INSULIN ASPART 100 UNITS/ML 3 ML PEN SC SCH (08:00)
[2017-03-09] MEDS: METOPROLOL SUCC 50MG EXT REL TAB PO SCH (09:00)
[2017-03-09] MEDS: ATORVASTATIN 20 MG TAB PO SCH (09:13)
[2017-03-09] MEDS: FUROSEMIDE 40 MG TAB PO SCH (09:14)
[2017-03-09] MEDS: AMIODARONE 200 MG TAB PO SCH (09:16)
[2017-03-09] MEDS ORDERED: NURSING VERBAL MED ORDER ONE (11:00)
--- NOTE | 2017-03-09 11:06 | Progress Note ---
Medicine Progress Note Date & Time of Visit: Mar 09, 2017 at 10:48. Subjective patient seen resting in bedside chair, comfortable reports that his legs appear more swollen and red today denies leg pain, decreased sensation or range of motion denies other symptoms hungry Objective Last 8 Hrs Date Time Temp Pulse Resp B/P (MAP) Pulse Ox O2 Delivery O2 Flow Rate FiO2 03/09/17 09:14 56 148/71 (96) 03/09/17 08:00 Room Air 03/09/17 07:14 36.8 58 16 142/83 (102) 95 Room Air 03/09/17 03:57 60 164/70 (101) Physical Exam: General- oriented x 3, not in distress, speaks in sentences with no effort Head- atraumatic Eyes- PERRL, EOMI, anicteric ENT- oropharynx clear Neck- supple, no JVD, no adenopathy, no thyromegaly; carotids +2/2, no bruits appreciated Lungs- clear to auscultation bilaterally Heart- regular rhythm; no murmur, normal rate Abdomen- normal bowel sounds, soft, nontender, no masses or hepatosplenomegaly Extremities-Right Lower Leg: (+) areas of open wounds with some serosanguinous drainage, surrounding erythema, warmth, tenderness and moderate edema fair dorsalis pedis pulse; no cyanosis noted Left Lower Leg: (+) in the proximal aspect, smaller area of open wounds , mild edema, fair dorsalis pedis pulse; no cyanosis noted Neuro- alert, oriented x 3; PERRL, EOMI; no facial palsy; no dysarthria; motor 5 /5 bilaterally; poor sensation on the right toes, no other gross focal deficits Skin- warm & dry Laboratory Results: Last 24 Hours Test 03/08/17 12:45 03/08/17 20:15 03/08/17 23:57 03/09/17 05:13 White Blood Count 7.36 K/uL 6.74 K/uL Red Blood Count 4.22 M/uL 4.04 M/uL Hemoglobin 11.7 g/dL 11.2 g/dL Hematocrit 37.4 % 35.5 % Mean Corpuscular Volume 88.6 fL 87.9 fL Mean Corpuscular Hemoglobin 27.7 pg 27.7 pg Mean Corpuscular Hemoglobin Concent 31.3 g/dl 31.5 g/dl Platelet Count 173 K/uL 161 K/uL Mean Platelet Volume 10.8 fL 10.6 fL Neutrophils (%) (Auto) 63.4 % 60.0 % Lymphocytes (%) (Auto) 20.9 % 23.0 % Monocytes (%) (Auto) 8.8 % 10.2 % Eosinophils (%) (Auto) 6.8 % 6.4 % Basophils (%) (Auto) 0.1 % 0.1 % Neutrophils # (Auto) 4.66 K/uL 4.04 K/uL Lymphocytes # (Auto) 1.54 K/uL 1.55 K/uL Monocytes # (Auto) 0.65 K/uL 0.69 K/uL Eosinophils # (Auto) 0.50 K/uL 0.43 K/uL Basophils # (Auto) 0.01 K/uL 0.01 K/uL RDW Standard Deviation 45.0 fL 45.5 fL RDW Coefficient of Variation 14.0 % 14.0 % Immature Granulocyte % (Auto) 0.0 % 0.3 % Immature Granulocyte # (Auto) 0.00 K/uL 0.02 K/uL Sodium Level 141 mmol/L 142 mmol/L Potassium Level 4.3 mmol/L 4.1 mmol/L Chloride Level 103 mmol/L 108 mmol/L Carbon Dioxide Level 28 mmol/L 25 mmol/L Anion Gap 10.0 mmol/L 9.0 mmol/L Blood Urea Nitrogen 41 mg/dl 36 mg/dl Creatinine 2.43 mg/dl 2.09 mg/dl Est Creatinine Clear Calc Drug Dose 32.6 ml/min 37.9 ml/min Estimated GFR () 27.8 33.4 Estimated GFR (Non- 24.0 28.8 BUN/Creatinine Ratio 16.9 17.3 Random Glucose 219 mg/dl 168 mg/dl Estimated Average Glucose 174 mg/dl Hemoglobin A1c 7.7 % Calcium Level 8.7 mg/dl 8.4 mg/dl Thyroid Stimulating Hormone (TSH) 2.330 uIu/ml Bedside Glucose 161 mg/dl 226 mg/dl Prothrombin Time 10.5 SECONDS Prothromb Time International Ratio 1.0 Triglycerides Level 163 mg/dl Cholesterol Level 155 mg/dl HDL Cholesterol 42 mg/dl LDL Cholesterol, Calculated 80 mg/dl VLDL Cholesterol, Calculated 33 mg/dl Cholesterol/HDL Ratio 3.7 Test 03/09/17 05:49 Bedside Glucose 172 mg/dl Date/Time Source Procedure Growth Status 03/08/17 17:42 Skin Leg Right Lower Gram Stain - Final Resulted 03/08/17 17:42 Skin Leg Right Lower Wound Culture Pending Resulted Assessment & Plan Infected Chronic Lower Leg Venous Stasis Ulcers, Cellulitis, Bilateral Legs seems to be worse today as per patient Cultures: wound- pending change Clindamycin to Vanco + Zosyn ID consulted continue usual Lasix Wound Care Consult placed 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, Left Dorsalis Pedis Vascular Surgery consulted already on Aspirin and Statin DM2 does not take any medications A1c 7.7 needs to be on oral agent started on insulin sliding scale CKD stage IV stable History of NSVT continue Amiodarone and Metoprolol HLD check fasting lipids increased Lipitor DVT ppx subq heparin DNR Dispo anticipate d/c home when medically stable Current Inpatient Medications: Current Inpatient Medications Medications (Trade) Dose Ordered Sig/Suraj Route Start Time Stop Time Status Last Admin Dose Admin Acetaminophen (Tylenol Tab) 650 mg Q4H PRN PO 03/08/17 18:00 04/07/17 17:59 Glucose (Glucose 40% Gel) 15-30 GRAMS 15 GRAMS... UD PRN PO 03/08/17 18:15 04/07/17 18:14 Glucose (Glucose Chew Tab) 4-8 Tablets 4 Tabl... UD PRN PO 03/08/17 18:15 04/07/17 18:14 Dextrose (Dextrose 50% 50ML Syringe) 25-50ML OF 50% DW IV FOR... UD PRN IV 03/08/17 18:15 04/07/17 18:14 Glucagon (Glucagon Inj) 1 mg UD PRN SQ 03/08/17 18:15 04/07/17 18:14 Atorvastatin Calcium (Lipitor Tab) 20 mg QAM PO 03/09/17 09:00 04/08/17 08:59 03/09/17 09:13 20 MG Aspirin (Ecotrin Tab) 81 mg QAM PO 03/09/17 09:00 04/08/17 08:59 Clindamycin Phosphate 600 mg/ Dextrose 54 ml @ 100 mls/hr Q8H IV 03/08/17 20:00 03/18/17 19:59 03/09/17 03:55 100 MLS/HR Amiodarone HCl (Cordarone Tab) 200 mg DAILY PO 03/09/17 09:00 04/08/17 08:59 03/09/17 09:16 200 MG Furosemide (Lasix Tab) 40 mg DAILY PO 03/09/17 09:00 04/08/17 08:59 03/09/17 09:14 40 MG Latanoprost (Xalatan Oph Soln) 1 drops HS OPB 03/08/17 21:00 04/07/17 20:59 Levothyroxine Sodium (Synthroid Tab) 75 mcg DAILYBB PO 03/09/17 06:00 04/08/17 06:59 03/09/17 05:52 75 MCG Metoprolol Succinate (Toprol Xl Tab) 50 mg DAILY PO 03/09/17 09:00 04/08/17 08:59 Hydralazine HCl (HydrALAZINE INJ) 5 mg Q4 PRN IV. 03/08/17 22:00 04/07/17 21:59 03/09/17 00:14 5 MG Insulin Aspart (novoLOG ASPART) SLIDING SCALE If C... Q6 SC 03/09/17 00:00 04/08/17 00:00 03/09/17 00:17 2 UNITS Heparin Sodium (Porcine) (Heparin Sq 5000 Unit/0.5ml) 5,000 unit Q12H SQ 03/09/17 18:00 04/08/17 05:59
[2017-03-09] MEDS ORDERED: VANCOMYCIN CONSULT ACTIVE PRN (11:14)
[2017-03-09] MEDS ORDERED: PIPERACILL/TAZOBAC CONSULT ACTIVE PRN (11:15)
[2017-03-09] MEDS ORDERED: VANCOMYCIN INJ 2,750 MG in SODIUM CHLORIDE 0.9% 500ML 500 ML IV SCH (11:30)
[2017-03-09] MEDS ORDERED: CEFEPIME CONSULT ACTIVE PRN ×2 (11:45)
[2017-03-09] MEDS: CEFEPIME IV 2,000 MG in SYRINGE 7.5 ML IV SCH (12:59)
[2017-03-09] MEDS: METRONIDAZOLE 500MG / NSS IV SCH ×2 (12:59→20:47)
[2017-03-09] MEDS: ASPIRIN 81 MG ECTAB PO SCH ×2 (13:31→13:48)
--- NOTE | 2017-03-09 14:25 | Progress Note ---
Progress Note Date of Service Mar 09, 2017. Progress Note ID Consult Dictated #[id number] A/P: 1. Le ulcer -Continue abx, follow cultures -Thank you
--- NOTE | 2017-03-09 14:26 | Surgery Consultation ---
Consultation Date of Service Mar 09, 2017. Chief Complaint BLE PAD, ulcers History of Present Illness The patient is a 81 year old male with multiple medical problems, including hypothyroidism, hypercholesterolemia, HTN, admitted with BLE ulcers/cellulitis, seen in consultation today for PAD noted on US. Pt admits BL knee pain with ambulation, but denies any hx of claudication. States he has had the ulcers for a long time and they had been improved after seeing the [facility] wound clinic for a few weeks, but they appeared worse to him yesterday, so came to [facility] for eval. Denies SHEPARD, fever, chills, chest pain, SOB, adb pain, N/V, rest pain, claudication, other complaints. States he was told in past to wear compression socks for the edema of his legs. Vitals Vital Signs Past 12 Hours Date Time Temp Pulse Resp B/P (MAP) Pulse Ox O2 Delivery O2 Flow Rate FiO2 03/09/17 13:03 36.7 59 16 152/80 (104) 98 Room Air 03/09/17 09:14 56 148/71 (96) 03/09/17 08:00 Room Air 03/09/17 07:14 36.8 58 16 142/83 (102) 95 Room Air 03/09/17 03:57 60 164/70 (101) Allergies Coded Allergies: Azithromycin (Unverified Allergy, Unknown, LIGHTHEADED, 03/08/17) IS UNSURE IF THIS IS THE ALLERGY FOR SURE. Home Medications Scheduled Amiodarone Hcl (Cordarone), 200 MG PO DAILY Atorvastatin (Lipitor), 10 MG PO DAILY Cholecalciferol (Vitamin D3), 2,000 INTER.UNIT PO DAILY Furosemide (Furosemide), 40 MG PO DAILY Latanoprost (Xalatan 0.005% Oph Carine), 1 DROPS OPB HS Levothyroxine Sodium (Levothyroxine Sodium), 75 MCG PO QAM Metoprolol Succinate (Metoprolol Succinate ER), 50 MG PO DAILY Problem List Medical Problems: (1) Arterial insufficiency of lower extremity (2) Arthritis (3) Cellulitis of lower leg (4) Chronic kidney disease, stage 4 (severe) (5) DM type 2 (diabetes mellitus, type 2) (6) Esophageal reflux (7) Frequent PVCs (8) Glaucoma (9) HTN (hypertension) (10) Hx of varicose veins of lower extremity (11) Hypercholesterolemia (12) Hypothyroidism (13) NSVT (nonsustained ventricular tachycardia) (14) Ventricular tachycardia seen on panel monitor Surgical Problems: (1) History of hip surgery Surgical / Medical History Hx Cardiac Surgery: No Hx Abdominal Surgery: No Hx Cancer Surgery: No Hx Thoracic Surgery: No Hx Orthopedic: Yes Hx Urinary Tract Surgery: No HX Other Surgery: Yes Past Medical/Surgical History: Heart Disease, High Cholesterol, Hypertension, Kidney Disease Family History Diabetes mellitus SISTER FH: CAD (coronary artery disease) MOTHER ("blood clot heart") Hypertension SISTER Social History Smoking Status: Former Smoker (smoked cigars, quit ) Hx Alcohol Use - Type & Amnt: No Hx Substance Use -Type & Amnt: No Review of Systems Constitutional: No chills, No fever, No malaise Skin: No change in color Eyes: No visual changes ENMT: No sore throat Respiratory: No cough, No hemoptysis Cardiovascular: + edema, No chest pain, No palpitations, No syncope, No intermittent claudication Gastrointestinal: No abdominal pain, No nausea, No vomiting Neurologic: No dizziness, No headache, No lethargy, No numbness, No tingling Physical Exam Constitutional: General Apperance: well-nourished, well-developed, obese Level of Distress: NAD, chronically ill Psychiatric: Mental Status: active & alert, normal mood, normal affect Orientation: oriented except where noted, to time, to place, to person Memory: recent memory normal, remote memory normal Head: normocephalic, atraumatic Eyes: EOM: EOMI ENMT: normal ENT inspection, hearing grossly normal Neck: supple, trachea midline Lungs: Respiratory effort: no dyspnea Auscultation: no rales/crackles, no rhonchi, decreased breath sounds Cardiovascular: Apical Impulse: not displaced Heart Auscultation: RRR, no rubs, no gallops Peripheral Pulses: Pulses: full and equal, in all extremities except if noted Bruits: none appreciated Carotid Pulse: normal on the left, normal on the right Brachial Pulses: normal on the left, normal on the right Radial Pulse: normal on the left, normal on the right Femoral Pulse: normal on the left, normal on the right Posterior Tibialis Pulse: pertinent finding (nonpalpable BLE) Dorsalis Pedis Pulse: decreased on the left, decreased on the right Abdomen: Bowel Sounds: normal Inspection & Palpation: soft, non-distended, no tenderness, guarding & rebound Musculoskeletal: normal strength (5/5 throughout), normal tone Extremities: Upper Right: no cyanosis, no edema, no varicosities Upper Left: no cyanosis, no edema, no varicosities Lower Right: no cyanosis, no varicosities, no palpable cord, edema, pertinent finding (shallow blisters with ulcers to anterior oneill areas BLE) Lower Left: no cyanosis, no varicosities, no palpable cord, edema Neurologic: Cranial Nerves: grossly intact Sensation: grossly intact Assessment and Plan ASSESSMENT and PLAN: BLE venous ulcerations PAD by US, asymptomatic Pt asymptomatic from mild/moderate PAD, no indications for vascular surgical intervention at this time. Recommend local wound care per wound clinic. Please call if needed.
--- NOTE | 2017-03-09 15:07 | INFECT. DISEASE CONSULTATION ---
DATE OF CONSULTATION: 03/09/2017 HISTORY OF PRESENT ILLNESS: This is an 81-year-old gentleman who was admitted to the hospital with lower extremity wound. He states that he has had this chronically and has been treated at the wound care center. He has not been followed by infectious diseases there. He has recently been on antibiotics intermittently. He states that he was recently on antibiotics prescribed on the wound center; however, he cannot recall the name. He states he had improvement in his ulceration, but then his ulceration returned after he stopped the antibiotics. He was placed on clindamycin and then broadened to vancomycin and Zosyn. He did have a wound culture obtained and it is negative. He recently was treated for a staph infection. He denies any fevers or chills. He denies any pain in legs. His wounds are being wrapped during my examination. His remaining review of systems is unremarkable. PAST MEDICAL HISTORY: Significant for stenosis of the right tibial artery, type 2 diabetes, chronic ulcerations, chronic kidney disease, hypertension, hyperlipidemia, esophageal reflux, chronic kidney disease, and hypothyroidism. PAST SURGICAL HISTORY: Significant for hip surgery. FAMILY HISTORY: Noncontributory. SOCIAL HISTORY: Significant for a history of tobacco use. He denies any alcohol or drug use. ALLERGIES: INCLUDE AZITHROMYCIN. CURRENT MEDICATIONS: Include subQ heparin, cefepime, Flagyl, vancomycin, Lipitor, Ecotrin, amiodarone, Lasix, Toprol-XL, Synthroid, hydralazine, eyedrops and Tylenol. PHYSICAL EXAMINATION: VITAL SIGNS: He is afebrile, pulse 59, respiratory rate 16, blood pressure 152/80, and oxygen saturation is 98% on room air. GENERAL: He is awake, alert and oriented x3. He is in no acute distress. HEENT: Mucous membranes are moist. Extraocular muscles are intact. HEART: Regular. LUNGS: Clear. ABDOMEN: Soft. EXTREMITIES: There is no edema. Dressings are clean, dry and intact. LABORATORY STUDIES: Revealed a white blood cell count of 6.7, hemoglobin 11.2, and platelets are 161. Chemistry panel reveals a sodium of 142, potassium 4.1, chloride 100, bicarbonate 25, BUN 36, creatinine 2, and glucose is 158. LFTs are not performed during this admission. Wound culture has no growth. Lower extremity ultrasound on the shows high-grade stenosis. ASSESSMENT AND PLAN: He can continue current medications for lower extremity ulcerations; however, vascular issue should be addressed as well. We will follow along with you. Thank you for this consultation.
--- NOTE | 2017-03-09 15:23 | Pharmacy Progress Note ---
Pharmacy Abx Initial Consult Date of Service Mar 09, 2017. Pharmacy Dosing Scope Date of Consult: 03/09/17 Consultation requested by: Dr. Holland Pharmacy is consulted to initiate Vancomycin and Cefepime IV dosing therapy, order appropriate labs and adjust drug dose/frequency. Subjective The patient is a 81 year old male admitted on Mar 08, 2017 at 17:57 with bilateral leg cellulitis who has a history of cellulitis. Dr. Holland consults pharmacy to dose Vancomycin and Cefepime. In addition he added Flagyl for anaerobic coverage. Patient does has cultures on record growing both MSSA and Serratia that was richards sensitive in the past 60 days. Objective Height (Feet): 6 Height (Inches): 0.00 Weight (Kilograms): 125.000 Vital Signs (Past 12Hrs) Vital Signs Past 12 Hours Date Time Temp Pulse Resp B/P (MAP) Pulse Ox O2 Delivery O2 Flow Rate FiO2 03/09/17 13:03 36.7 59 16 152/80 (104) 98 Room Air 03/09/17 09:14 56 148/71 (96) 03/09/17 08:00 Room Air 03/09/17 07:14 36.8 58 16 142/83 (102) 95 Room Air 03/09/17 03:57 60 164/70 (101) Lab Results (24Hrs) Laboratory Tests (24 Hours) Test 03/09/17 05:13 White Blood Count 6.74 K/uL (4.8-10.8) Red Blood Count 4.04 M/uL (4.7-6.1) L Hemoglobin 11.2 g/dL (14.0-18.0) L Hematocrit 35.5 % (42-52) L Mean Corpuscular Volume 87.9 fL (80-100) Mean Corpuscular Hemoglobin 27.7 pg (25-34) Mean Corpuscular Hemoglobin Concent 31.5 g/dl (32-36) L Platelet Count 161 K/uL (130-400) Mean Platelet Volume 10.6 fL (7.4-10.4) H Neutrophils (%) (Auto) 60.0 % Lymphocytes (%) (Auto) 23.0 % Monocytes (%) (Auto) 10.2 % Eosinophils (%) (Auto) 6.4 % Basophils (%) (Auto) 0.1 % Neutrophils # (Auto) 4.04 K/uL (1.4-6.5) Lymphocytes # (Auto) 1.55 K/uL (1.2-3.4) Monocytes # (Auto) 0.69 K/uL (0.11-0.59) H Eosinophils # (Auto) 0.43 K/uL (0-0.5) Basophils # (Auto) 0.01 K/uL (0-0.2) Micro Results Date/Time Source Procedure Growth Status 03/08/17 17:42 Skin Leg Right Lower Gram Stain - Final Resulted 03/08/17 17:42 Skin Leg Right Lower Wound Culture - Preliminary NO GROWTH TO DATE. Resulted Risk Factors for Resistance * Hospitalization for 48 hours or more within the past 90 days Assessment & Plan Assessment 81 year old male with bilateral lower extremity cellulitis with pending cultures started on broad spectrum antibiotics. Plan Vancomycin for treatment of Cellulitis Vancomycin IV * Loading dose: 2750 mg (22 mg/kg) * Maintenance dose: Vancomycin 1500mg IV (12 mg/kg) every 24 hours * Goal trough level: 15 to 20 mcg/ml * Random ordered with am labs tomorrow 03/10 and trough level ordered prior to 1000 on 03/12/17 * A less than traditional dose has been selected due to likelihood of drug accumulation in obese patient. * I ordered the random with possibility of marked renal improvement overnight. Pharmacy will continue to follow and will adjust dose/frequency as necessary. Thank you.
[2017-03-09] MEDS: HEPARIN SOD 5000 UNIT/0.5 ML CARP SQ SCH (18:03)
[2017-03-09] MEDS: LATANOPROST 0.005% OP SOLN 2.5 ML BTL OPB SCH (20:52)
[2017-03-10] VITALS (7 sets, daily range): BP systolic 124–189; BP diastolic 62–78; PULSE 59–78; TEMP 36.1–36.7; O2SAT 95–96
[2017-03-10] MEDS: METRONIDAZOLE 500MG / NSS IV SCH ×2 (04:01→12:10)
[2017-03-10] MEDS: LEVOTHYROXINE 75 MCG TAB PO SCH (06:03)
[2017-03-10] MEDS: HEPARIN SOD 5000 UNIT/0.5 ML CARP SQ SCH ×2 (06:04→18:15)
[2017-03-10] MEDS: ASPIRIN 81 MG ECTAB PO SCH (08:50)
[2017-03-10] MEDS: AMIODARONE 200 MG TAB PO SCH (08:51)
[2017-03-10] MEDS: ATORVASTATIN 20 MG TAB PO SCH (08:51)
[2017-03-10] MEDS: FUROSEMIDE 40 MG TAB PO SCH (08:51)
[2017-03-10] MEDS: METOPROLOL SUCC 50MG EXT REL TAB PO SCH (08:52)
[2017-03-10] MEDS: INSULIN ASPART 100 UNITS/ML 3 ML PEN SC SCH ×4 (08:54→21:10)
[2017-03-10 08:59] LABS: BUN/CREATININE RATIO 17.3 (10-20); CALCIUM 8.7 mg/dl (8.5-10.1); CREATININE 2.54 mg/dl (0.60-1.40); POTASSIUM 4.1 mmol/L (3.5-5.1)
[2017-03-10] MEDS ORDERED: VANCOMYCIN INJ 1,500 MG in SODIUM CHLORIDE 0.9% 500ML 500 ML IV SCH (10:00)
--- NOTE | 2017-03-10 10:39 | Pharmacy Progress Note ---
Pharmacy Abx Dose Short Note Date of Service Mar 10, 2017. Assessment & Plan Assessment 81 year old male receiving VANCOMYCIN, CEFEPIME + FLAGYL for treatment of CELLULITIS/LOWER EXTREMITY ULCERATIONS Scr has increased from 2.09 --> 2.54 mg/dl. Pt has received a loading dose of Vancomycin + one maintenance dose. PK/elimination of vanco decreasing with increasing Scr. Will hold vancomycin and check a random level in AM. Will re- dose vancomycin with random level is in goal trough range. Day # 2 of antimicrobial therapy. Plan Vancomycin * HOLD for now * Order random level /16 w/AM labs * Re-dose IV Vancomycin when random level is in goal trough range (10-20 mcg/ml ) Pharmacy will continue to follow and will adjust dose/frequency as necessary. Thank you.
[2017-03-10] MEDS: CEFEPIME IV 2,000 MG in SYRINGE 7.5 ML IV SCH (12:09)
--- NOTE | 2017-03-10 13:29 | Progress Note ---
Subjective Date of Service: Mar 10, 2017. Subjective pt oob to chair, afebrile. tolerating abx. wound culture with vp research only, rare, otherwise negative. wbc nml. has h/o mssa from wound. Problem List Medical Problems: (1) Acute on chronic renal insufficiency Status: Acute (2) Arterial insufficiency of lower extremity Status: Acute (3) Cellulitis Status: Acute Objective Vital Signs Date Time Temp Pulse Resp B/P (MAP) Pulse Ox O2 Delivery O2 Flow Rate FiO2 03/10/17 07:50 95 Room Air 03/10/17 07:45 Room Air 03/10/17 07:43 36.7 68 20 128/78 (95) 95 Room Air 03/09/17 23:30 Room Air 03/09/17 23:25 37.3 65 18 122/68 (86) 96 Room Air 03/09/17 15:45 Room Air 03/09/17 15:31 36.7 65 18 118/68 (85) 94 Room Air Physical Exam General Appearance: WD/WN, no apparent distress Neck: supple Respiratory/Chest: normal breath sounds, no respiratory distress Cardiovascular: no edema Skin: normal color Laboratory Results Item Value Date Time Gram Stain - Final Complete 03/08/17 1742 Skin Leg Right Lower Last 24 Hours Test 03/09/17 17:01 03/09/17 20:37 03/10/17 07:56 03/10/17 08:12 Bedside Glucose 130 mg/dl 218 mg/dl 171 mg/dl Sodium Level 140 mmol/L Potassium Level 4.1 mmol/L Chloride Level 106 mmol/L Carbon Dioxide Level 23 mmol/L Anion Gap 11.0 mmol/L Blood Urea Nitrogen 44 mg/dl Creatinine 2.54 mg/dl Est Creatinine Clear Calc Drug Dose 31.2 ml/min Estimated GFR () 26.4 Estimated GFR (Non- 22.8 BUN/Creatinine Ratio 17.3 Random Glucose 168 mg/dl Calcium Level 8.7 mg/dl Test 03/10/17 12:21 Bedside Glucose 173 mg/dl Assessment and Plan (1) Arterial insufficiency of lower extremity Assessment & Plan: can changed abx to doxy 100mg po bid with food x 10 days, will continue with wound center follow up post d/c. no contraindication for d/c from ID standpoint.
--- NOTE | 2017-03-10 17:52 | Progress Note ---
Medicine Progress Note Date & Time of Visit: Mar 10, 2017 at 17:48. Subjective patient seen sitting in chair, comfortable states he feels fine overall denies leg pain, fever/chills denies chest pain, dyspnea, palpitations, dizziness no other symptoms Objective Last 8 Hrs Date Time Temp Pulse Resp B/P (MAP) Pulse Ox O2 Delivery O2 Flow Rate FiO2 03/10/17 15:08 36.1 59 16 133/73 (93) 95 Room Air 03/10/17 14:09 124/70 (88) 03/10/17 14:07 78 96 Physical Exam: General- oriented x 3, not in distress, speaks in sentences with no effort Head- atraumatic Eyes- EOMI, anicteric Neck- supple, no JVD Lungs- clear breath sounds bilaterally Heart- regular rhythm; no murmur, normal rate Abdomen- normal bowel sounds, soft, nontender Extremities-Right Lower Leg: (+) areas of open wounds with some serosanguinous drainage, surrounding erythema, warmth, tenderness and moderate edema: IMPROVING fair dorsalis pedis pulse; no cyanosis noted Left Lower Leg: (+) in the proximal aspect, smaller area of open wounds , mild edema, fair dorsalis pedis pulse; no cyanosis noted IMPROVING Neuro- alert, oriented x 3; no gross focal neuro deficits Skin- warm & dry Laboratory Results: Last 24 Hours Test 03/09/17 20:37 03/10/17 07:56 03/10/17 08:12 03/10/17 12:21 Bedside Glucose 218 mg/dl 171 mg/dl 173 mg/dl Sodium Level 140 mmol/L Potassium Level 4.1 mmol/L Chloride Level 106 mmol/L Carbon Dioxide Level 23 mmol/L Anion Gap 11.0 mmol/L Blood Urea Nitrogen 44 mg/dl Creatinine 2.54 mg/dl Est Creatinine Clear Calc Drug Dose 31.2 ml/min Estimated GFR () 26.4 Estimated GFR (Non- 22.8 BUN/Creatinine Ratio 17.3 Random Glucose 168 mg/dl Calcium Level 8.7 mg/dl Assessment & Plan Infected Chronic Lower Leg Venous Stasis Ulcers, Cellulitis, Bilateral Legs Cultures: wound- Coag Neg staph changed Clindamycin to Vanco + Zosyn ID consulted, recommend Doxycycline 100mg BID x 10 days continue usual Lasix Wound Care Consult placed, ff up as outpatient home health services 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, Left Dorsalis Pedis Vascular Surgery consulted already on Aspirin and Statin -- no intervention recommended at this time DM2 does not take any medications A1c 7.7 needs to be on oral agent started on insulin sliding scale CKD stage IV stable History of NSVT continue Amiodarone and Metoprolol HLD LDL 80 increased Lipitor DVT ppx subq heparin DNR Dispo anticipate d/c home with home health services tomorrow Current Inpatient Medications: Current Inpatient Medications Medications (Trade) Dose Ordered Sig/Suraj Route Start Time Stop Time Status Last Admin Dose Admin Acetaminophen (Tylenol Tab) 650 mg Q4H PRN PO 03/08/17 18:00 04/07/17 17:59 Glucose (Glucose 40% Gel) 15-30 GRAMS 15 GRAMS... UD PRN PO 03/08/17 18:15 04/07/17 18:14 Glucose (Glucose Chew Tab) 4-8 Tablets 4 Tabl... UD PRN PO 03/08/17 18:15 04/07/17 18:14 Dextrose (Dextrose 50% 50ML Syringe) 25-50ML OF 50% DW IV FOR... UD PRN IV 03/08/17 18:15 04/07/17 18:14 Glucagon (Glucagon Inj) 1 mg UD PRN SQ 03/08/17 18:15 04/07/17 18:14 Atorvastatin Calcium (Lipitor Tab) 20 mg QAM PO 03/09/17 09:00 04/08/17 08:59 03/10/17 08:51 20 MG Aspirin (Ecotrin Tab) 81 mg QAM PO 03/09/17 09:00 04/08/17 08:59 03/10/17 08:50 81 MG Amiodarone HCl (Cordarone Tab) 200 mg DAILY PO 03/09/17 09:00 04/08/17 08:59 03/10/17 08:51 200 MG Furosemide (Lasix Tab) 40 mg DAILY PO 03/09/17 09:00 04/08/17 08:59 03/10/17 08:51 40 MG Latanoprost (Xalatan Oph Soln) 1 drops HS OPB 03/08/17 21:00 04/07/17 20:59 03/09/17 20:52 1 DROPS Levothyroxine Sodium (Synthroid Tab) 75 mcg DAILYBB PO 03/09/17 06:00 04/08/17 06:59 03/10/17 06:03 75 MCG Metoprolol Succinate (Toprol Xl Tab) 50 mg DAILY PO 03/09/17 09:00 04/08/17 08:59 03/10/17 08:52 50 MG Hydralazine HCl (HydrALAZINE INJ) 5 mg Q4 PRN IV. 03/08/17 22:00 04/07/17 21:59 03/09/17 00:14 5 MG Heparin Sodium (Porcine) (Heparin Sq 5000 Unit/0.5ml) 5,000 unit Q12H SQ 03/09/17 18:00 04/08/17 05:59 03/10/17 06:04 5,000 UNIT Vancomycin HCl (Consult) 1 ea UD PRN N/A 03/09/17 11:14 04/08/17 11:13 Insulin Aspart (novoLOG ASPART) SLIDING SCALE If C... ACHS SC 03/09/17 12:00 04/08/17 11:59 03/10/17 13:24 3 UNITS Cefepime HCl 2000 mg/Syringe 20 ml @ 5 mls/min Q24H IV 03/09/17 12:00 03/19/17 11:59 03/10/17 12:09 5 MLS/MIN Metronidazole 500 mg/Prmx 100 ml @ 100 mls/hr Q8H IV 03/09/17 12:00 03/19/17 11:59 03/10/17 12:10 100 MLS/HR Cefepime HCl (Consult) 1 ea UD PRN N/A 03/09/17 11:45 04/08/17 11:44 Vancomycin HCl 1500 mg/Sodium Chloride 530 ml @ 200 mls/hr Q24H IV 03/10/17 10:00 03/20/17 09:59 Future Hold 03/10/17 10:22 200 MLS/HR
[2017-03-10] MEDS ORDERED: LACTOBACILLUS ACIDOPHILUS (FLORANEX) TAB PO ONE (18:30)
[2017-03-10] MEDS ORDERED: POLYETHYLENE (MIRALAX) 17 GM PACK PO PRN (18:30)
[2017-03-10] MEDS ORDERED: DOCUSATE SODIUM/SENNA 50/8.6MG TAB PO PRN (18:30)
[2017-03-10] MEDS: LATANOPROST 0.005% OP SOLN 2.5 ML BTL OPB SCH (21:00)
[2017-03-10] MEDS: DOXYCYCLINE HYCLATE 100 MG CAP PO SCH (21:07)
[2017-03-11] MEDS: LEVOTHYROXINE 75 MCG TAB PO SCH (05:43)
[2017-03-11] MEDS: HEPARIN SOD 5000 UNIT/0.5 ML CARP SQ SCH (05:46)
[2017-03-11 06:24] LABS: HEMATOCRIT 33.9 % (42-52); MEAN CELL VOLUME 86.3 fL (80-100); MEAN CORPUSCULAR HEMOGLOBIN 28.2 pg (25-34); MEAN CORPUSCULAR HGB CONC 32.7 g/dl (32-36); MEAN PLATELET VOLUME 10.3 fL (7.4-10.4); PLATELET COUNT 148 K/uL (130-400); RED BLOOD COUNT 3.93 M/uL (4.7-6.1); WHITE BLOOD COUNT 5.33 K/uL (4.8-10.8)
[2017-03-11 07:00] VITALS: BP 144/68; PULSE 58; TEMP 37; O2SAT 94
[2017-03-11 07:02] LABS: BUN/CREATININE RATIO 19.5 (10-20); CALCIUM 8.3 mg/dl (8.5-10.1); CREATININE 2.38 mg/dl (0.60-1.40); POTASSIUM 4.1 mmol/L (3.5-5.1)
[2017-03-11 08:42] VITALS: BP 162/68; PULSE 64
[2017-03-11] MEDS: INSULIN ASPART 100 UNITS/ML 3 ML PEN SC SCH ×2 (08:47→12:35)
[2017-03-11] MEDS: LACTOBACILLUS ACIDOPHILUS (FLORANEX) TAB PO SCH ×2 (08:48→12:36)
[2017-03-11] MEDS: AMIODARONE 200 MG TAB PO SCH (08:48)
[2017-03-11] MEDS: ASPIRIN 81 MG ECTAB PO SCH (08:48)
[2017-03-11] MEDS: DOXYCYCLINE HYCLATE 100 MG CAP PO SCH (08:49)
[2017-03-11] MEDS: METOPROLOL SUCC 50MG EXT REL TAB PO SCH (08:49)
[2017-03-11] MEDS: ATORVASTATIN 20 MG TAB PO SCH (08:49)
[2017-03-11] MEDS: FUROSEMIDE 40 MG TAB PO SCH (08:49)
[2017-03-11 10:46] VITALS: BP 162/68; PULSE 64; TEMP 37; O2SAT 94
--- NOTE | 2017-03-11 11:52 | Progress Note ---
Medicine Progress Note Date & Time of Visit: Mar 11, 2017 at 11:38. Subjective seen resting in chair, in good spirits comfortable leg swelling improving daily no pain denies other symptoms states he is ready and would like to be discharged today Objective Last 8 Hrs Date Time Temp Pulse Resp B/P (MAP) Pulse Ox O2 Delivery O2 Flow Rate FiO2 03/11/17 10:46 37.0 64 18 94 Room Air 03/11/17 08:42 64 162/68 (99) 03/11/17 07:45 Room Air 03/11/17 07:00 37.0 58 18 144/68 (93) 94 Room Air Physical Exam: General- oriented x 3, not in distress, speaks in sentences with no effort Eyes- anicteric Neck- no JVD Lungs- clear breath sounds bilaterally, no rales/wheezes Heart- regular rhythm; no murmur, normal rate Abdomen- normal bowel sounds, soft, nontender Extremities-Right Lower Leg: (+) areas of open wounds - no drainage, surrounding mild erythema and mild edema fair dorsalis pedis pulse; no cyanosis noted Left Lower Leg: (+) in the proximal aspect, smaller area of open wounds , mild edema, fair dorsalis pedis pulse; no cyanosis noted IMPROVED Neuro- alert, oriented x 3; no gross focal neuro deficits Skin- warm & dry Laboratory Results: Last 24 Hours Test 03/10/17 12:21 03/10/17 16:54 03/10/17 20:38 03/11/17 06:12 Bedside Glucose 173 mg/dl 155 mg/dl 230 mg/dl White Blood Count 5.33 K/uL Red Blood Count 3.93 M/uL Hemoglobin 11.1 g/dL Hematocrit 33.9 % Mean Corpuscular Volume 86.3 fL Mean Corpuscular Hemoglobin 28.2 pg Mean Corpuscular Hemoglobin Concent 32.7 g/dl RDW Standard Deviation 44.2 fL RDW Coefficient of Variation 13.9 % Platelet Count 148 K/uL Mean Platelet Volume 10.3 fL Sodium Level 138 mmol/L Potassium Level 4.1 mmol/L Chloride Level 107 mmol/L Carbon Dioxide Level 23 mmol/L Anion Gap 8.0 mmol/L Blood Urea Nitrogen 46 mg/dl Creatinine 2.38 mg/dl Est Creatinine Clear Calc Drug Dose 33.2 ml/min Estimated GFR () 28.5 Estimated GFR (Non- 24.6 BUN/Creatinine Ratio 19.5 Random Glucose 166 mg/dl Calcium Level 8.3 mg/dl Random Vancomycin Level 22.9 mcg/ml Test 03/11/17 08:09 Bedside Glucose 166 mg/dl Assessment & Plan Infected Chronic Lower Leg Venous Stasis Ulcers, Cellulitis, Bilateral Legs Cultures: wound- Coag Neg staph changed Clindamycin to Vanco + Zosyn continue to improve ID consulted, recommend Doxycycline 100mg BID x 10 days continue usual Lasix Wound Care Consult placed, ff up as outpatient home health services 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, Left Dorsalis Pedis Vascular Surgery consulted already on Aspirin and Statin -- no intervention recommended at this time monitor as outpatient DM2 does not take any medications A1c 7.7 d/c on Glipizide daily CKD stage IV stable History of NSVT continue Amiodarone and Metoprolol HLD LDL 80 increased Lipitor Dispo d/c home with home health services ff up with PCP in 1 week ff up with Wound Care/ID clinic in 1 week Current Inpatient Medications: Current Inpatient Medications Medications (Trade) Dose Ordered Sig/Suraj Route Start Time Stop Time Status Last Admin Dose Admin Acetaminophen (Tylenol Tab) 650 mg Q4H PRN PO 03/08/17 18:00 04/07/17 17:59 Glucose (Glucose 40% Gel) 15-30 GRAMS 15 GRAMS... UD PRN PO 03/08/17 18:15 04/07/17 18:14 Glucose (Glucose Chew Tab) 4-8 Tablets 4 Tabl... UD PRN PO 03/08/17 18:15 04/07/17 18:14 Dextrose (Dextrose 50% 50ML Syringe) 25-50ML OF 50% DW IV FOR... UD PRN IV 03/08/17 18:15 04/07/17 18:14 Glucagon (Glucagon Inj) 1 mg UD PRN SQ 03/08/17 18:15 04/07/17 18:14 Atorvastatin Calcium (Lipitor Tab) 20 mg QAM PO 03/09/17 09:00 04/08/17 08:59 03/11/17 08:49 20 MG Aspirin (Ecotrin Tab) 81 mg QAM PO 03/09/17 09:00 04/08/17 08:59 03/11/17 08:48 81 MG Amiodarone HCl (Cordarone Tab) 200 mg DAILY PO 03/09/17 09:00 04/08/17 08:59 03/11/17 08:48 200 MG Furosemide (Lasix Tab) 40 mg DAILY PO 03/09/17 09:00 04/08/17 08:59 03/11/17 08:49 40 MG Latanoprost (Xalatan Oph Soln) 1 drops HS OPB 03/08/17 21:00 04/07/17 20:59 03/09/17 20:52 1 DROPS Levothyroxine Sodium (Synthroid Tab) 75 mcg DAILYBB PO 03/09/17 06:00 04/08/17 06:59 03/11/17 05:43 75 MCG Metoprolol Succinate (Toprol Xl Tab) 50 mg DAILY PO 03/09/17 09:00 04/08/17 08:59 03/11/17 08:49 50 MG Hydralazine HCl (HydrALAZINE INJ) 5 mg Q4 PRN IV. 03/08/17 22:00 04/07/17 21:59 03/09/17 00:14 5 MG Heparin Sodium (Porcine) (Heparin Sq 5000 Unit/0.5ml) 5,000 unit Q12H SQ 03/09/17 18:00 04/08/17 05:59 03/11/17 05:46 5,000 UNIT Insulin Aspart (novoLOG ASPART) SLIDING SCALE If C... ACHS SC 03/09/17 12:00 04/08/17 11:59 03/11/17 08:47 3 UNITS Doxycycline Hyclate (Vibramycin Cap) 100 mg BID PO 03/10/17 21:00 03/20/17 20:59 03/11/17 08:49 100 MG Lactobacillus Acidophilus (Floranex Tab) 4 tab TIDM PO 03/11/17 08:30 04/10/17 08:29 03/11/17 08:48 4 TAB Polyethylene (Miralax Powder Packet) 17 gm DAILY PRN PO 03/10/17 18:30 04/09/17 18:29 Senna/Docusate Sodium (Senokot S Tab) 1 tab DAILY PRN PO 03/10/17 18:30 04/09/17 18:29 03/10/17 20:15 1 TAB
[2017-03-11] MEDS ORDERED: DXY100 PO (12:00)
[2017-03-11] MEDS ORDERED: SENN8.6T7 PO (12:00)
[2017-03-11] MEDS ORDERED: ASPEC81 PO (12:00)
--- NOTE | 2017-03-11 12:02 | Discharge Instructions ---
Discharge Instructions Date of Service Mar 11, 2017. Admission Reason for Admission: Art Insuff Of Lower Ex,Cellulitis Lower Leg Discharge Discharge Diagnosis / Problem: CELLULITIS OF THE LOWER EXTREMITIES Discharge Goals Goal(s): Diagnostic testing, Therapeutic intervention Activity Recommendations Activity Limitations: as noted below (increase activity gradually as tolerated) . Instructions / Follow-Up Instructions / Follow-Up PLEASE REVIEW YOUR NEW MEDICATION LIST AND FOLLOW INSTRUCTIONS DAILY. INCLUDE YOGURT OR PROBIOTICS IN YOUR DAILY DIET. MAINTAIN DIABETIC DIET. CALL YOUR PRIMARY CARE PHYSICIAN OR RETURN TO ER IMMEDIATELY IF WITH WORSENING OF SYMPTOMS, INCREASING LEG SWELLING/REDNESS/WARMTH/TENDERNESS, PURPLE DISCOLORATION/ DECREASED SENSATION/PAIN ON THE LEGS/FEET. FOLLOW UP WITH PRIMARY CARE PHYSICIAN DR. HERNÁNDEZ (ASSOCIATE OF DR. AYALA) ON Wednesday03/16/17 AT 930AM. FOLLOW UP WITH THE [facility] TEL. NO. [phone] AND INFECTIOUS DISEASE CLINIC WITH DR. ROSE TEL. NO. IN 1 WEEK. PLEASE CALL THEIR OFFICE FOR AN APPOINTMENT. Current Hospital Diet Patient's current hospital diet: Diabetes Type 2 Diet, AHA Diet (Heart Healthy) Discharge Diet Recommended Diet: AHA Diet (Heart Healthy), Diabetes Type 2 Diet Procedures Procedures Performed: LEG ULTRASOUN, XRAY Pending Studies Studies pending at discharge: no Laboratory Results Hemoglobin A1c Test 03/08/17 12:45 Range/Units Estimated Average Glucose 174 mg/dl Hemoglobin A1c 7.7 H 4.5-5.6 % Lipid Panel Test 03/09/17 05:13 Range/Units Triglycerides Level 163 H 0-150 mg/dl Cholesterol Level 155 0-200 mg/dl HDL Cholesterol 42 mg/dl Cholesterol/HDL Ratio 3.7 LDL Cholesterol, Calculated 80 mg/dl Medical Emergencies . Who to Call and When: Medical Emergencies: If at any time you feel your situation is an emergency, please call 911 immediately. . Non-Emergent Contact Non-Emergency issues call your: Primary Care Provider Call Non-Emergent contact if: you have a fever, your pain is not controlled, your pain is worsening, wound has increased drainage, wound has increased redness, wound has increased pain, you have any medication questions . . "Provider Documentation" section prepared by Mode Holland. . VTE Core Measure Inpt VTE Proph given/why not?: Unfractionated heparin SQ
--- NOTE | 2017-03-11 12:25 | Discharge Summary ---
Discharge Summary Date of Service Mar 11, 2017. Discharge Summary Admission Date: Mar 08, 2017 at 17:57 Discharge Date: Mar 11, 2017 Discharge Disposition: Home with services Principal Diagnosis: Infected Chronic Lower Leg Venous Stasis Ulcers, Cellulitis, Bilateral Legs Secondary Diagnoses/Problems: Please refer to hospital course below. Procedures: VENOUS DOPPLER LWR EXT BILA CLINICAL HISTORY: 81 years-old Male presenting with transient BLE cyanosis. TECHNIQUE: Real-time grayscale and color and spectral Doppler ultrasound imaging of the veins of the bilateral lower extremities was performed. Compression and augmentation were also utilized. COMPARISON: None. FINDINGS: Right: Common femoral vein: Patent. Femoral vein: Patent. Greater saphenous vein: Patent. Popliteal vein: Patent. Calf veins: Limited visualization. Left: Common femoral vein: Patent. Femoral vein: Patent. Greater saphenous vein: Patent. Popliteal vein: Patent. Calf veins: Limited visualization. Other: Left popliteal cysts noted. IMPRESSION: No evidence of deep venous thrombosis. R TIBIA/FIBULA 2 VIEWS ROUTINE CLINICAL HISTORY: Cellulitis, diabetic COMPARISON: None. DISCUSSION: There are mild osteoarthritic changes present within the knee. No acute fractures are visualized. There are no erosive or destructive changes. IMPRESSION: 1. No evidence of fracture 2. No evidence of osteomyelitis. Electronically signed by: Jose Triplett M.D. 03/08/2017 1:21 PM ART DOP LOWER EXT BILAT HISTORY: 81 years-old Male transient BLE cyanosis acute cyanosis of the bilateral lower extremities COMPARISON: None available TECHNIQUE: Multiple real-time sonographic images of the bilateral lower extremity arterial structures were obtained assessing grayscale appearance, color and spectral flow. Digit waveforms were also obtained. ABIs were not obtained secondary to open wounds. FINDINGS: RIGHT: Triphasic waveforms are noted within the common femoral, profunda femoris, superficial femoral and popliteal arteries. Blunted biphasic waveforms of the peroneal, anterior tibial and dorsalis pedis arteries. Atherosclerosis noted. Elevated peak systolic velocity of 440.6 cm/s noted within the posterior tibial artery with triphasic waveforms suggesting high-grade stenosis. LEFT: Triphasic waveforms are noted within the common femoral, profunda femoris, and superficial femoral arteries. Blunted biphasic waveforms are seen within the popliteal artery. Blunted monophasic waveforms of the posterior tibial, anterior tibial and peroneal arteries. Elevated peak systolic velocity 152 cm/s noted within the peroneal artery. Reversed flow within the dorsalis pedis artery with peak systolic velocity of 20 cm/s. IMPRESSION: 1. Elevated peak systolic velocity of 440.6 cm/s within the right posterior tibial artery suggests high-grade stenosis. 2. Mildly elevated peak systolic velocity of the left peroneal artery also suggests stenosis. 3. Reversed flow within the left dorsalis pedis artery suggests high-grade stenosis. 4. Waveforms above the level of the knees appear to be within normal limits as above. The above report was generated using voice recognition software. It may contain grammatical, syntax or spelling errors. Consultations: ID Dr. Rose, Vascular Surgery Dr. Ortez Pending Studies/Follow-Up: Please refer to hospital course below. Medication Reconciliation New Medications: Aspirin (Aspirin EC Low Dose) 81 Mg Ectab 81 MG PO QAM for 30 Days, #30 TABS 2 Refills with food Doxycycline Hyclate (Doxycycline Hyclate) 100 Mg Cap 100 MG PO BID for 9 Days, #18 CAP 0 Refills with food Sennosides-Docusate Sodium (Senokot S) 1 Tab Tab 1 TAB PO DAILY PRN for constipation, #10 TAB 2 Refills Continued Medications: Amiodarone Hcl (Cordarone) 200 Mg Tab 200 MG PO DAILY, TAB Atorvastatin (Lipitor) 10 Mg Tab 10 MG PO DAILY Cholecalciferol (Vitamin D3) 2,000 Unit Cap 2000 INTER.UNIT PO DAILY, CAP 3 Refills Furosemide (Furosemide) 40 Mg Tab 40 MG PO DAILY, #30 Latanoprost (Xalatan 0.005% Oph Carine) 0.005 % Carine 1 DROPS OPB HS, #7.5 ML 3 Refills Levothyroxine Sodium (Levothyroxine Sodium) 75 Mcg Tab 75 MCG PO QAM, #34 Metoprolol Succinate (Metoprolol Succinate ER) 25 Mg Tabcr 50 MG PO DAILY, #30 Admission Information HPI (per Admitting provider): Pt is 81 y/o M with PMH CKD stage IV, DM II, HTN, hypothyroidism, chronic NSVT presented to ER with c/o lower leg erythema. Pt reports for "2 years" bilateral LE wounds intermittently. States past couple of months has been having bilateral lower leg cellulitis and sores/ulcers and has been on several antibiotics and following with the wound clinic. Hx MSSA on wound culture 10/ 2017. States last seen by wound clinic one week ago and legs were healing well with ulcers healed and no significant erythema. Reports started using compression boots and then approx 2-3 days later noticed some redness to R anterior lower leg with worsening and open area past 2 days. C/O burning sensation to right lower anterior leg past 2 days also. Denies purulent drainage from area. C/O cold feet and today after getting out of the shower reports that bilateral lower legs were purple color which resolved after elevating legs. He reports hx decreased sensation to bilateral feet for years, denies paresthesias. Pt states on lasix for LE edema. Pt states not on meds for DM as was taken off oral because of his CKD. Hx ECHO 02/09 EF: 55%, Holter with frequent ventricular ectopy, 6 beat run NSVT. Denies any hx bleeding disorders or problems. Denies fever/chills, diaphoresis, N/V/D/C, SHEPARD, dizziness , syncope, vision changes, neck pain, CP, SOB, orthopnea, palpitations, cough, sore throat, choking, otalgia, rhinorrhea, abdominal pain, extremity weakness, extremity edema, urinary symptoms. Seen in ER and had negative xray R tib/fib. Venous doppler bilaterally was negative DVT. 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 No leukocytosis. H/H 11.7/37 (pt's baseline). BUN: 41, CR: 2.4, GFR 24 (baseline CR: 2.4, GFR: 23). Glucose 24. He was started on Clindamycin IV. Physical Exam (per Admitting): General Appearance: no apparent distress, + obese Head: normocephalic, atraumatic Eyes: normal inspection, EOMI, sclerae normal ENT: pharynx normal, + pertinent finding (hard of hearing) Neck: supple, no JVD, trachea midline Respiratory/Chest: chest non-tender, lungs clear, normal breath sounds, no respiratory distress, no accessory muscle use Cardiovascular: regular rate, rhythm, + systolic murmur Abdomen/GI: normal bowel sounds, non tender, soft Extremities/Musculoskelatal: normal range of motion, + pertinent finding ( extremities warm. bilateral lower legs 1+ edema, left lower leg non-tender, venous stasis changes, right lower leg anterior with erythema with excoriation, mild tenderness to palpation, no purulent discharge, no red streaking. bilateral diminished pedal pulses. sensation to light touch intact.) Skin: warm/dry, + pertinent finding (see extremities. no other rashes noted) Hospital Course Infected Chronic Lower Leg Venous Stasis Ulcers, Cellulitis, Bilateral Legs Wound Cultures: wound- Coag Neg staph changed Clindamycin to Vanco + Zosyn continued to improve ID consulted: Dr. 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 already on Aspirin and Statin monitor as outpatient DM2 does not take any medications A1c 7.7 Metformin, Glipizide discontinued as outpatient due to CKD has declined Insulin DM diet monitor as outpatient CKD stage IV stable History of NSVT continue Amiodarone and Metoprolol HLD LDL 80 on Lipitor Dispo d/c home with home health services ff up with PCP in 1 week ff up with Wound Care/ID clinic in 1 week Total time spent on discharge = 35 minutes This includes examination of the patient, discharge planning, medication reconciliation, and communication with other providers. Discharge Instructions Discharge Instructions Date of Service Mar 11, 2017. Admission Reason for Admission: Art Insuff Of Lower Ex,Cellulitis Lower Leg Discharge Discharge Diagnosis / Problem: CELLULITIS OF THE LOWER EXTREMITIES Discharge Goals Goal(s): Diagnostic testing, Therapeutic intervention Activity Recommendations Activity Limitations: as noted below (increase activity gradually as tolerated) . Instructions / Follow-Up Instructions / Follow-Up PLEASE REVIEW YOUR NEW MEDICATION LIST AND FOLLOW INSTRUCTIONS DAILY. INCLUDE YOGURT OR PROBIOTICS IN YOUR DAILY DIET. MAINTAIN DIABETIC DIET. CALL YOUR PRIMARY CARE PHYSICIAN OR RETURN TO ER IMMEDIATELY IF WITH WORSENING OF SYMPTOMS, INCREASING LEG SWELLING/REDNESS/WARMTH/TENDERNESS, PURPLE DISCOLORATION/ DECREASED SENSATION/PAIN ON THE LEGS/FEET. FOLLOW UP WITH PRIMARY CARE PHYSICIAN DR. HERNÁNDEZ (ASSOCIATE OF DR. AYALA) ON Wednesday03/16/17 AT 930AM. FOLLOW UP WITH THE WOUND [facility]ARE CENTER TEL. NO. [phone] AND INFECTIOUS DISEASE CLINIC WITH DR. ROSE TEL. NO. IN 1 WEEK. PLEASE CALL THEIR OFFICE FOR AN APPOINTMENT. Current Hospital Diet Patient's current hospital diet: Diabetes Type 2 Diet, AHA Diet (Heart Healthy) Discharge Diet Recommended Diet: AHA Diet (Heart Healthy), Diabetes Type 2 Diet Procedures Procedures Performed: LEG ULTRASOUN, XRAY Pending Studies Studies pending at discharge: no Laboratory Results Hemoglobin A1c Test 03/08/17 12:45 Range/Units Estimated Average Glucose 174 mg/dl Hemoglobin A1c 7.7 H 4.5-5.6 % Lipid Panel Test 03/09/17 05:13 Range/Units Triglycerides Level 163 H 0-150 mg/dl Cholesterol Level 155 0-200 mg/dl HDL Cholesterol 42 mg/dl Cholesterol/HDL Ratio 3.7 LDL Cholesterol, Calculated 80 mg/dl Medical Emergencies . Who to Call and When: Medical Emergencies: If at any time you feel your situation is an emergency, please call 911 immediately. . Non-Emergent Contact Non-Emergency issues call your: Primary Care Provider Call Non-Emergent contact if: you have a fever, your pain is not controlled, your pain is worsening, wound has increased drainage, wound has increased redness, wound has increased pain, you have any medication questions . . "Provider Documentation" section prepared by Mode Holland. . VTE Core Measure Inpt VTE Proph given/why not?: Unfractionated heparin SQ
[2017-03-11 14:00] VITALS: Ht 182.9 cm; Wt 125.0 kg
[2017-03-12] MEDS ORDERED: VANCOMYCIN TROUGH ONE (09:30)
== END 2017-03-11 15:00 | disposition home health service (06) | DRG 593 ==
LOC: C.EDB 11:20 → C.MSW 17:57 → EDBEDREQ 18:13 → EDBEDREQSVC 18:23 → ENRESERV 18:32
PROVIDERS: ADMIT Family Medicine; ATTEND Internal Medicine
DX: L97.919 Non-pressure chronic ulcer of unspecified part of right lower leg with unspecified severity (principal); L03.116 Cellulitis of left lower limb; L03.115 Cellulitis of right lower limb; I47.2 Ventricular tachycardia; N18.4 Chronic kidney disease, stage 4 (severe); L97.929 Non-pressure chronic ulcer of unspecified part of left lower leg with unspecified severity; I87.8 Other specified disorders of veins; B95.7 Other staphylococcus as the cause of diseases classified elsewhere; I89.0 Lymphedema, not elsewhere classified; I70.203 Unspecified atherosclerosis of native arteries of extremities, bilateral legs; I12.9 Hypertensive chronic kidney disease with stage 1 through stage 4 chronic kidney disease, or unspecified chronic kidney disease; E11.22 Type 2 diabetes mellitus with diabetic chronic kidney disease; E78.00 Pure hypercholesterolemia, unspecified; E78.5 Hyperlipidemia, unspecified; E03.9 Hypothyroidism, unspecified; E66.9 Obesity, unspecified; Z68.37 Body mass index [BMI] 37.0-37.9, adult; Z66 Do not resuscitate; Z87.891 Personal history of nicotine dependence; Z79.899 Other long term (current) drug therapy